=== PATIENT | male | born 1935 | race Caucasian/White ===

== ENCOUNTER → 2018-05-12 10:51 | Outpatient (CLI) | payer MEDICARE, MEDICAID, SELFPAY ==
--- NOTE | 2018-05-12 10:54 | DI.RAD.S_ITS ---
PROCEDURE: XR SHOULDER LT MIN 2V INDICATIONS: OSTEOARTHRITIS TECHNIQUE: 3 views of the shoulder were acquired. COMPARISON: None. FINDINGS: Bones: No fractures or dislocations. No suspicious bony lesions. Visualized ribs appear intact. Mild to moderate a.c. joint and glenohumeral joint osteoarthritis is seen. Soft tissues: No suspicious soft tissue calcifications. IMPRESSION: Shoulder joint osteoarthritis. No fracture or dislocation. Dictated by: Bon Fuentes M.D. on 05/12/2018 at 13:06 Approved by: Bon Fuentes M.D. on 05/12/2018 at 13:08
== END ==
PROVIDERS: Family Provider Family Medicine; PCP Family Medicine; Visit Provider Physical Medicine & Rehabilitation
DX: M19.012 Primary osteoarthritis, left shoulder (principal); M19.011 Primary osteoarthritis, right shoulder
CPT/HCPCS: 73030

== ENCOUNTER 2018-05-18 13:22 | Outpatient (CLI) | payer MEDICARE, MEDICAID, SELFPAY ==
[2018-05-18] VITALS (20 sets, daily range): BP systolic 94–148; BP diastolic 40–80; PULSE 43–110; RESP 16–20; TEMP 36.8; O2SAT 97–100
--- NOTE | 2018-05-18 13:25 | DI.RAD.S_ITS ---
PROCEDURE: PAIN L/S TRANSFORAMINAL INJECT INDICATIONS: Spinal stenosis with right lower extremity symptoms FINDINGS: Fluoroscopic spot filming was performed to verify placement of spinal needles at the lumbosacral spine L3-L4 right-sided level(s), as labeled on the films. Appropriate location(s) of the needle tip(s) was confirmed by injection of iodinated contrast. IMPRESSION: Successful right-sided L3-L4 needle tip localization for transforaminal epidural steroid injection. Dictated by: Francisco Connelly M.D. on 05/18/2018 at 15:03 Approved by: Francisco Connelly M.D. on 05/18/2018 at 15:04
[2018-05-18] MEDS: MIDAZOLAM 5 MG/5 ML VIAL IV (13:57)
[2018-05-18] MEDS: BUPIVACAINE 0.25% (PF) VIAL 2 ML INJ (14:01)
[2018-05-18] MEDS: IOPAMIDOL 15 ML VIAL 3 ML INJ (14:02)
[2018-05-18] MEDS: methylPREDNISolone acetate 80 MG/ML VIAL INJ (14:02)
--- NOTE | 2018-05-18 14:08 | P.PCN_ITS ---
Procedures Date/Time Date of procedure: 05/18/18 Time of procedure: 14:07 General Procedure description: PROVIDER: Minesh Martinez DO Operative Note PREOP DIAGNOSIS 1. FORAMINAL STENOSIS WITH LE SYMPTOMS, POST OP DIAGNOSIS 1. FORAMINAL STENOSIS WITH LE SYMPTOMS, PROCEDURES 1. FLUOROSCOPICALLY GUIDED CONTRAST CONTROLLED TRANSFORAMINAL EPIDURAL STEROID INJECTION - RIGHT L3/4 TFESI SURGEON: Minesh Martinez DO INDICATIONS Wilber is referred by Dr. Vo for treatment of Foraminal Stenosis with right LE Symptoms FINDINGS Foraminal Nerve Root Compression secondary to disc disease and facet hypertrophy DESCRIPTION OF PROCEDURE Following denial of allergy and review of potential side effects and complications, including, but not necessarily limited to, infection, allergic reaction, local tissue breakdown, stroke, temporary or permanent nerve injury, paralysis, and possible , the patient indicated that the patient understood and agreed to proceed. An informed consent document was signed by the patient, witnessed by a nurse, and placed in the patient's chart. Additionally, other treatment options including medications, modalities, and physical therapy were reviewed with the patient. After review of previous anaesthesic history and IV conscious sedation the patient was deemed safe to proceed with todays procedure with IV conscious sedation as ASA class II designation. Safety time-out was performed to confirm patient ID, procedure to be performed and site of procedure. IV sedation was accomplished with a combination of 5mg was administered by the RN after DO order , titrated to patient comfort during the course of the procedure while the patient remained responsive to all verbal commands In the prone position following sterile prep and drape of the lumbar region, the right L3/4 posterior neuroforamen was identified fluoroscopically. The skin was anesthetized via a 25-gauge 1.5-inch needle with 1% lidocaine solution. At this point, a 25-gauge 3.5-inch spinal needle was atraumatically introduced and advanced under fluoroscopic guidance through the posterior right L3/4 neuroforamen to approximately the anterior aspect of the canal. Depth was confirmed on lateral view. Following negative aspiration, injection of approximately 1.5 cc of Isovue 200 under live fluoroscopy in the AP view confirmed excellent flow along the nerve root, into the epidural space without vascular or intrathecal uptake observed Radiological data, including multiple fluoroscopic views of the lumbosacral spine, reveal a spinal needle at the right L3/4 posterior neuroforamen. Subsequent views show flow of contrast material flowing superiorly and inferiorly along the nerve root confirming epidural flow. Subsequently, a test dose of 1.5 cc of 1% lidocaine solution was administered and patient was observed for two minutes for signs or symptoms of complications , including abdominal pain, shortness of breath, bilateral upper or lower extremity weakness, nausea and vomiting, prior to steroid injection. At this point, a total of 3 cc or 20 mg of dexamethasone and 80mg Depo medrol was injected without incident. The patient tolerated the procedure well without signs or symptoms of complications prior to transfer to the recovery area continued monitoring without incident. The patient was then transferred to the recovery area where they were observed for an appropriate time after the injection. The patient reported a VAS score of 7 prior to the procedure and a post-procedure VAS of 0. Total Fluoroscopy Time: 24.2 seconds Total Conscious Sedation Time: 24min POST OP INSTRUCTIONS The patient was provided a Pain Log to continue to record their response to the target-specific procedure prior to follow-up visit with their referring physician. Additionally, specific post-injection care instructions and a contact number to our office were provided if concerns arise regarding possible complications associated with the procedure are suspected. Minesh Martinez DO
[2018-05-18] MEDS: DEXAMETHASONE 10 MG/ML VIAL 20 MG INJ (14:19)
--- NOTE | 2018-05-19 13:43 | PC.NURSE ---
Called patient for follow up post procedure but pt did not answer so I left a message.
== END 2018-05-18 15:29 ==
PROVIDERS: Family Provider Family Medicine; PCP Family Medicine; Visit Provider Physical Medicine & Rehabilitation
DX: M48.062 Spinal stenosis, lumbar region with neurogenic claudication (principal); M51.16 Intervertebral disc disorders with radiculopathy, lumbar region
CPT/HCPCS: 64483; 99152; J1040; J1100; J2250

== ENCOUNTER → 2018-05-24 16:58 | Outpatient (CLI) | payer MEDICARE, MEDICAID, SELFPAY ==
--- NOTE | 2018-05-24 17:02 | DI.RAD.S_ITS ---
PROCEDURE: XR CHEST 2V INDICATIONS: unexplained weight loss TECHNIQUE: 2 views of the chest were acquired. COMPARISON: 06/18/2015. FINDINGS: Surgical changes and devices: None. Lungs and pleura: No pleural effusions or pneumothorax. Lungs are clear. Mediastinum: Mediastinal contours are normal. Heart size is normal. Bones and chest wall: No suspicious bony abnormalities. Diffuse thoracic spine osteophytes. Soft tissues appear unremarkable. IMPRESSION: No radiographic evidence of acute cardiopulmonary pathology. Dictated by: Mike Yepez M.D. on 05/25/2018 at 9:39 Approved by: Mike Yepez M.D. on 05/25/2018 at 9:40
[2018-05-24 17:29] LABS: Add Manual Diff / Slide Review NO; Basophils Percent Auto 0.6 % (0-2); Hemoglobin 12.1 g/dL (13.5-17.5); Lymphocytes Percent Auto 30.4 % (25-40); Mean Corpuscular HGB Conc 32.7 % (30-36); Mean Corpuscular Hemoglobin 30.2 PG (26-34); Mean Corpuscular Volume 92.4 fL (80-100); Monocytes Percent Auto 10.1 % (3-14); Neutrophils Absolute Auto 4300 /uL (3000-5900); Neutrophils Percent Auto 57.9 % (50-75); Platelet Count 208 X10^3/uL (150-400); Red Cell Distribution Width 15.5 % (11.6-14.8); White Blood Cell Count 7.4 X10^3/uL (4.5-11.0)
[2018-05-24 18:01] LABS: Alanine Aminotransferase 24 IU/L (21-72); Albumin 3.9 g/dL (3.5-5.0); Albumin Globulin Ratio 1.4 (1.0-2.8); Alkaline Phosphatase 97 U/L (38-126); Aspartate Aminotransferase 26 IU/L (17-59); BUN Creatinine Ratio 15.5 (6-22); Bilirubin Total 0.5 mg/dL (0.2-1.3); Blood Urea Nitrogen 17 mg/dL (9-20); Calcium 9.3 mg/dL (8.4-10.2); Carbon Dioxide 30 mmol/L (22-32); Chloride 103 mmol/L (98-107); Estimated Glomerular Filt Rate > 60.0 mL/min (>60); Globulin 2.7 g/dL (1.7-4.1); Glucose 90 mg/dL (80-110); HEMOLYSIS < 15 (0-50); Potassium 4.1 mmol/L (3.4-5.1); Sodium 143 mmol/L (137-145); Total Protein 6.6 g/dL (6.3-8.2)
[2018-05-24 18:18] LABS: Free T4, Direct Thyroxine 1.46 ng/dL (0.78-2.19)
[2018-05-24 18:32] LABS: Thyroid Stimulating Hormone 0.46 uIU/mL (0.47-4.68)
== END ==
PROVIDERS: Family Provider Family Medicine; PCP Family Medicine; Visit Provider Family Medicine
DX: R63.4 Abnormal weight loss (principal); I10 Essential (primary) hypertension; Z00.00 Encounter for general adult medical examination without abnormal findings
CPT/HCPCS: 36415; 71046; 80053; 84153; 84439; 84443; 85025

== ENCOUNTER → 2018-06-01 13:53 | Outpatient (CLI) | payer MEDICARE, MEDICAID, SELFPAY ==
--- NOTE | 2018-06-01 14:05 | DI.CT.S_ITS ---
PROCEDURE: CT ABDOMEN PELVIS W CON INDICATIONS: UNEXPLAINED WEIGHT LOSS TECHNIQUE: After the administration of oral and intravenous contrast, 5 mm thick sections acquired from the diaphragms to the symphysis. 5 mm thick coronal and sagittal reformats were performed. For radiation dose reduction, the following was used: automated exposure control, adjustment of mA and/or kV according to patient size. COMPARISON: None. FINDINGS: Image quality: Images of the pelvis are partially obscured by hip arthroplasty artifact. ABDOMEN: Lung bases: 5 mm diameter nodule within the left inspector penetrant lateral lung base is present. Lung bases are otherwise clear. Heart size is normal. Solid organs: Liver is normal in size and enhancement. Gallbladder is within normal limits. Biliary system is non-dilated. Pancreas enhances normally. Spleen is normal in size and enhancement. No adrenal nodules. Kidneys are normal in size and enhancement, without hydronephrosis. Peritoneum and bowel: A moderate hiatal hernia is present. Stomach, small bowel, and colon loops are normal in caliber and wall thickness. No free fluid or air. Normal appendix. Nodes and vessels: No retroperitoneal or mesenteric adenopathy. Aorta and inferior vena cava are normal in caliber. Miscellaneous: No ventral hernias. PELVIS: Genitourinary: Bladder wall thickness is normal. Miscellaneous: No inguinal hernias or adenopathy. Bones: No suspicious bony lesions. Bilateral hip arthroplasty has been performed. No vertebral body compression fractures. IMPRESSION: 1. Left lung base nodule; followup is recommended as below. 2. Normal appendix. 3. Moderate hiatal hernia. Fleischner Society criteria for SOLID lung nodule followup. Nodule size (mm)Low-risk patientHigh-risk patient<6 (single or multiple)No routine followup.Optional CT at 12 months. 6-8 (single or multiple)CT at 6-12 months, then optional CT at 18-24 mo.CT at 6-12 months, then CT at 18-24 months. >8 (single)CT, PET-CT, or biopsy at 3 months. Same as for low-risk pts. >8 (multiple)CT at 3-6 months, then optional CT at 18-24 mo.CT at 3-6 months, then CT at 18-24 months. Fleischner Society criteria for SUB-SOLID lung nodule followup. Solitary pure ground-glass nodules<6 mm (ground glass or part solid)No followup needed. 6 mm or larger (ground glass)CT at 6-12 months to confirm persistence, then CT every 2 years until 5 years.6 mm or larger (part solid)CT at 3-6 months to confirm persistence, then annual CT until 5 years if unchanged and solid component remains <6 mm. Multiple sub-solid nodules<6 mmCT at 3-6 months, then CT consider at 2 & 4 years for high risk patients. [address] at 3-6 months. Subsequent management based on most suspicious lesions. Recommendations do not apply to lung cancer screening, patients with immunosuppression, or patients with known primary cancer. Dictated by: Shereen Sarkar M.D. on 06/01/2018 at 14:49 Approved by: Shereen Sarkar M.D. on 06/01/2018 at 14:52
== END ==
PROVIDERS: Family Provider Family Medicine; PCP Family Medicine; Visit Provider Family Medicine
DX: R63.4 Abnormal weight loss (principal); R91.1 Solitary pulmonary nodule; K44.9 Diaphragmatic hernia without obstruction or gangrene
CPT/HCPCS: 74177; Q9967

== ENCOUNTER → 2019-01-31 14:12 | Outpatient (CLI) | payer MEDICARE, MEDICAID, SELFPAY ==
--- NOTE | 2019-01-31 14:14 | DI.MRI.S_ITS ---
PROCEDURE: MR LUMBAR SPINE WO CON INDICATIONS: Low back pain TECHNIQUE: Noncontrast sagittal T1 spin echo and T2 fast echo, sagittal STIR, axial T1 and T2 fast spin echo through the lumbar spine. In cases with scoliosis, additional coronal T2 fast spin echo may be performed. COMPARISON: [facility], MR, L-SPINE WITHOUT CONTRAST, 05/01/2016, 8:00. [facility], CT, CT ABDOMEN PELVIS W CON, 06/01/2018, 14:19. [facility], MR, L-SPINE WITHOUT CONTRAST, 01/22/2014, 13:33. [facility], MR, L-SPINE WITHOUT CONTRAST, 11/30/2011, 17:56. FINDINGS: Image quality: Excellent. Alignment and Curvature: There is mild S. shaped scoliotic curvature seen. Bone Marrow: Marrow is of normal overall signal. No acute vertebral body compression fractures. Spinal Cord: Conus medullaris terminates at the T12-L1 level. Visualized cord demonstrates normal signal and size. Paraspinous Soft Tissues: No paravertebral masses. T12-L1: The disc height is well-preserved. Loss of disc signal is seen at this level. Mild generalized disc bulge is seen. There is mild left-sided and moderate right-sided neural foraminal narrowing seen. No significant central canal narrowing is seen. L1-L2: Moderate to severe loss of disc height is seen. Loss of disc signal is seen. Moderate disc bulge is seen, which is eccentric to the right side. Moderate facet joint hypertrophy is seen. There is moderate bilateral neural foraminal narrowing seen, right worse than left. Moderate central canal narrowing is seen. The degree of central canal narrowing appears improved compared to 2016. L2-L3: Moderate to severe loss of disc height and disc signal are seen. Moderate to prominent disc bulge is seen. Moderate facet hypertrophy is seen, with associated moderate hypertrophy of the ligamentum flavum. Moderate bilateral neural foraminal narrowing is seen. Moderate to severe central canal narrowing is seen, as on series 5 image 19. Stable from the prior study. L3-L4: At least moderate loss of disc height and disc signal are seen. Moderate disc bulge is seen, which is eccentric to the right. Prominent facet hypertrophy is seen, with associated prominent hypertrophy of the ligamentum flavum. There is at least moderate bilateral neural foraminal narrowing seen, left worse than right. Severe central canal narrowing is seen, as on series 5 image 23. No significant change from the prior. L4-L5: Moderate to severe loss of disc height and disc signal are seen. Moderate disc bulge is seen, which is eccentric to the left. There is prominent facet hypertrophy seen, with associated prominent hypertrophy of the ligamentum flavum. There is moderate right-sided and moderate to severe left-sided neural foraminal narrowing seen. Severe central canal narrowing is seen, as on the spine image 28. Stable from the prior study. L5-S1: Moderate to severe loss of disc height and disc signal are seen. Moderate disc bulge is seen, which is eccentric to the left. Moderate to prominent facet hypertrophy is seen. Moderate bilateral neural foraminal narrowing is seen. Moderate central canal narrowing is seen. Stable from the prior study. IMPRESSION: Multiple levels of relatively lower lumbar spine degenerative change are seen, which are similar to 2016. However, the degree of central canal narrowing at L1-L2 appears improved since the prior MRI. Dictated by: Medardo Rojas M.D. on 01/31/2019 at 14:11 Approved by: Medardo Rojas M.D. on 01/31/2019 at 14:18
== END ==
PROVIDERS: Family Provider Family Medicine; PCP Family Medicine; Visit Provider Physical Medicine & Rehabilitation
DX: M54.5 Low back pain (principal); M47.816 Spondylosis without myelopathy or radiculopathy, lumbar region; M47.817 Spondylosis without myelopathy or radiculopathy, lumbosacral region; M48.062 Spinal stenosis, lumbar region with neurogenic claudication; M48.07 Spinal stenosis, lumbosacral region
CPT/HCPCS: 72148

== ENCOUNTER 2019-02-21 14:03 | Outpatient (CLI) | payer MEDICARE, MEDICAID, SELFPAY ==
[2019-02-21] VITALS (8 sets, daily range): BP systolic 99–146; BP diastolic 53–79; PULSE 52–71; RESP 16–18; TEMP 36.1; O2SAT 97–99
--- NOTE | 2019-02-21 14:07 | DI.RAD.S_ITS ---
PROCEDURE: PAIN L/S FACET INJ/BLK 1ST BRANT COMPARISON: None. INDICATIONS: SPONDYLOSIS FINDINGS: Bilateral needle tip localization has been performed targeted to the L4-5 and L5-S1 facet joints for facet joint steroid injection. IMPRESSION: Successful needle tip localization is bilaterally for facet joint steroid injection as discussed. Dictated by: Francisco Connelly M.D. on 02/21/2019 at 16:31 Approved by: Francisco Connelly M.D. on 02/21/2019 at 16:32
[2019-02-21] MEDS: MIDAZOLAM 5 MG/5 ML VIAL IV (14:30)
[2019-02-21] MEDS: fentaNYL 100 MCG/2 ML INJ 50 MCG IV (14:30)
[2019-02-21] MEDS: IOPAMIDOL 15 ML VIAL 3 ML INJ (14:33)
[2019-02-21] MEDS: LIDOCAINE 1% 20 ML INJ 10 ML INJ (14:33)
[2019-02-21] MEDS: BUPIVACAINE 0.5% (PF) VIAL 2 ML INJ (14:33)
[2019-02-21] MEDS: BETAMETHASONE 30 MG/5 ML MDV 12 MG INJ (14:33)
--- NOTE | 2019-02-21 14:39 | PC.NURSE ---
ASSISTING PT OFF TABLE AND TRANSPORTING TO POST PROC AREA IN STABLE CONDITION.
--- NOTE | 2019-02-21 14:43 | P.PCN_ITS ---
Procedures Date/Time Date of procedure: 02/21/19 Time of procedure: 14:42 General Procedure description: PREOP DIAGNOSIS 1. FACET ARTHROPATHY 2. AXIAL LBP 3. MULTILEVEL DDD POST OP DIAGNOSIS 1. FACET ARTHROPATHY 2. AXIAL LBP 3. MULTILEVEL DDD PROCEDURES 1. FLUORSCOPICALLY GUIDED CONTRAST CONTROLLED FACET JOINT INJECTIONS BILATERAL L4/5, L5/S1 PHYSICIAN: Minesh Martinez, INDICATIONS Wilber is referred by Dr. Vo for treatment of Axial LBP FINDINGS Multilevel Facet Arthropathy with Clinically significant axial LBP DESCRIPTION OF PROCEDURE Fluoroscopically guided, contrast-controlled bilateral L4/5, L5/S1 facet joint injections. Following denial of allergy and review of potential side effects and complications, including, but not necessarily limited to, infection, allergic reaction, local tissue breakdown, stroke, temporary or permanent nerve injury, paralysis, and possible , the patient indicated that the patient understood and agreed to proceed. An informed consent document was signed by the patient, witnessed by a nurse, and placed in the patient's chart. Additionally, other treatment options including medications, modalities, and physical therapy were reviewed with the patient. After review of previous anaesthesic history and IV conscious sedation the patient was deemed safe to proceed with todays procedure with IV conscious sedation as ASA class II designation. Safety time-out was performed to confirm patient ID, procedure to be performed and site of procedure. IV sedation was accomplished with a combination of 2mg of Versed and 50mcg of Fentanyl was administered by the RN after DO order, titrated to patient comfort during the course of the procedure while the patient remained responsive to all verbal commands In the prone position, following sterile prep and drape of the lumbar region, the posterior aspect of the L4/5, L5/S1 facet joints were identified fluoroscopically. The skin was anesthetized via a 25-gauge 1.5-inch needle with 1% lidocaine solution into the corresponding facet joints. At this point, a 22- gauge 3.5-inch spinal needle was atraumatically introduced and advanced under fluoroscopic guidance into the corresponding facet joints. Following negative aspiration, injections of approximately 0.2-cc of Isovue 200 confirmed interarticular placement without vascular uptake. The identical procedure was then performed at the L4/5, L5/S1 facet joints on the left. Radiological data, including multiple fluoroscopic views of the lumbosacral spine, reveal a spinal needle at the L4/5, L5/S1 facet joints bilaterally. Subsequent views show flow of contrast material both superiorly and inferiorly within the joint space without vascular or intrathecal uptake. At this point, a total of 0.5cc including a mixture of 0.25cc Marcaine and 0.25cc betamethasone was injected without complication into each of the corresponding facet joints. The patient tolerated the procedure well without signs or symptoms of complications prior to transfer to the recovery area continued monitoring without incident. The patient was then transferred to the recovery area where they were observed for an appropriate period of time after the injection. The patient reported a VAS score of 7 prior to the procedure and a post- procedure VAS of 0. Total Fluoroscopy Time: 20.3 seconds Total Conscious Sedation Time: 24min POST OP INSTRUCTIONS The patient was provided a Pain Log to continue to record their response to the target-specific procedure prior to follow-up visit with their referring physician. Additionally, specific post-injection care instructions and a contact number to our office were provided if concerns arise regarding possible complications associated with the procedure are suspected. Minesh Martinez DO Complications: none
--- NOTE | 2019-02-21 15:20 | PC.NURSE ---
pt returned from procedure awake and alert and able to move from W/C to chair with standby assist. Resumed monitoring from Maria Fernanda NASCIMENTO.
== END 2019-02-21 15:29 ==
LOC: RAD 14:05
PROVIDERS: PCP Family Medicine; Referring Provider Physical Medicine & Rehabilitation; Visit Provider Physical Medicine & Rehabilitation
DX: M47.817 Spondylosis without myelopathy or radiculopathy, lumbosacral region (principal); M47.816 Spondylosis without myelopathy or radiculopathy, lumbar region; M54.5 Low back pain; M51.36 Other intervertebral disc degeneration, lumbar region; M51.37 Other intervertebral disc degeneration, lumbosacral region
CPT/HCPCS: 64493; 64494; 99152; J0702; J2250; J3010

== ENCOUNTER 2021-01-08 12:53 | Emergency (ER) | payer MEDICARE, MEDICAID, SELFPAY ==
[2021-01-08 13:02] VITALS: BP 150/70; PULSE 60; RESP 18; O2SAT 96
--- NOTE | 2021-01-08 13:05 | DI.RAD.S_ITS ---
PROCEDURE: XR KNEE LT 3V INDICATIONS: pain unknown. TECHNIQUE: 3 views of the knee were acquired. COMPARISON: [facility], , KNEE 3V LEFT, 01/18/2017, 12:25. FINDINGS: Bones: No fractures or dislocations. Unchanged degenerative arthritis. No suspicious bony lesions. Soft tissues: No joint effusion. No suspicious soft tissue calcifications. Extensive popliteal artery calcifications. IMPRESSION: 1. Stable degenerative arthritis. 2. Peripheral vascular disease. 3. No evidence acute bony abnormality of the left knee. If clinical suspicion and/or symptoms persist, further assessment with repeat plain films, or advanced imaging (e.g., CT, MRI, or bone scan) may be helpful for further assessment. Dictated by: Lit Cardenas M.D. on 01/08/2021 at 14:06 Approved by: Lit Cardenas M.D. on 01/08/2021 at 14:08
--- NOTE | 2021-01-08 15:40 | PC.NURSE ---
pulses palpable to left popiteal and ankle, pt describes it being a shooting pain, in the inner thigh.
--- NOTE | 2021-01-08 16:16 | ED_ITS ---
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 Patient has expressive aphasia secondary to stroke. Patient does not recall any significant trauma or injury recently. He states he does exercise regularly. Patient does indicate that he has had issues with his back and that sometimes this pain seems to be radiating down his leg towards his knee. His back pain is not new. He is denying any new numbness, weakness or loss of sensation. Patient does leave his knee is slightly more swollen than the other. He indicates the medial side of the knee just above her adjacent to the tibia is his main area of pain. Patient states that when he stands or moves it seems to cause sudden jolt of pain. Patient indicates the does sometimes radiate from his back down his leg but not always. He has not felt or appreciate any warmth or redness. He does appreciate some mild swelling in his lower extremity at the knee. Related Data Previous Rx's Medication Instructions Recorded Disabled Parking Permit ea #1 05/05/17 alprazolam 0.5 mg OR HSP PRN #30 tab 12/10/17 levothyroxine 100 mcg tablet 100 mcg PO QAM #90 tab 06/13/18 oxycodone 10 mg tablet 10 mg PO QIDP PRN #120 tab 08/01/18 allopurinol 300 mg tablet 300 mg PO QDAY #30 tab 10/20/18 clopidogrel 75 mg tablet 75 mg PO QDAY #90 tab 10/20/18 atorvastatin 40 mg tablet 40 mg PO HS #90 tab 11/11/18 gabapentin 300 mg capsule 600 mg PO 5XD PRN #90 cap 03/03/19 meloxicam [Mobic] 7.5 mg PO BID PRN #10 tab 01/08/21 Allergies Allergy/AdvReac Type Severity Reaction Status Date / Time morphine AdvReac Mild NON Verified 02/21/19 14:29 EFFECTIVE Review of Systems Review of Systems ROS Unobtainable: All systems reviewed & are unremarkable except as noted in HPI and below Patient History Medical History Anemia (Unknown) Anxiety (Unknown) Aphasia (11/2014) Blind left eye (2016) Chronic back pain (Unknown) CKD (chronic kidney disease) (Unknown) Generalized headaches (Unknown) Gouty arthritis (Unknown) Hearing loss Hx of steroid therapy (~2015) Hyperlipemia (Unknown) Hypertension (Unknown) Hypothyroidism (Unknown) Stroke (11/2014) Uncomplicated opioid dependence Surgical History Hx of total hip arthroplasty (Unknown) Family History Father No problems noted. Mother No problems noted. Social History Smoking Status: Former smoker alcohol intake: never substance use type: does not use Smoking Status: Former smoker Substance Use Type: does not use Exam Narrative Exam Narrative: GENERAL: Alert and oriented x three, well-nourished male in mild distress. HEENT: Head normocephalic, atraumatic, EOMI, pupils reactive, face symmetric, moist mucous membranes NECK: Supple, full range of motion CARDIOVASCULAR: Regular rate and rhythm without murmurs, rubs or gallops. RESPIRATORY: Breath sounds equal bilaterally, no wheezes rales or rhonchi. ABDOMEN: Soft, nontender. Normoactive bowel sounds all 4 quadrants. No guarding or rebound, rigidity, no mass : No CVA tenderness BACK: No cervical, thoracic or lumbar vertebral point tenderness. Patient has normal range of motion. Dorsalis pedis and tibialis pulses are 2+. Sensation is intact in the lower extremities. EXTREMITIES: Normal range of motion, no clubbing, possible mild edema of medial knee but difficulty to appreciate. No posterior knee pain, no calf pain. Patient has some tenderness of the medial knee, no significant bony tenderness of the foot, ankle, lower extremity or patella, patient is nontender in the femur. He does not have any obvious deformity joint laxity testing is negative with negative compression test no warmth or erythema is appreciated.. Neurovascularly intact NEUROLOGICAL: Cranial nerves II through XII grossly intact. Moving all extremities SKIN: Warm, dry, no petechiae, no rashes or lesions. Initial Vital Signs Initial Vital Signs: Vital Signs Pulse Rate 60 01/08/21 13:02 Respiratory Rate 18 01/08/21 13:02 Blood Pressure 150/70 H 01/08/21 13:02 Pulse Oximetry 96 01/08/21 13:02 Course Orders Ordered: ED Orders 01/08/21 13:05 XR knee LT 3V Stat Vital Signs Vital signs: Vital Signs - 8 hr 01/08/21 13:02 01/08/21 17:08 Pulse Rate 60 50 L Respiratory Rate 18 18 Blood Pressure 150/70 H 171/84 H Pulse Oximetry 96 98 MDM - Extremity Injury (Lower) Imaging Data Extremity x-ray #1: Radiologist's Impression: [address] [id number] ReportSigned Patient: Wilber Marie WMR#: [id number]: 7Acct:[id number]/Sex: 85 / MDate of Service: 01/08/21Loc: EDAccession Number: [id number] Procedure: XR knee LT 3V Ordering Provider: Criss Padilla D.O. PROCEDURE: XR KNEE LT 3V INDICATIONS: pain unknown. TECHNIQUE: 3 views of the knee were acquired. COMPARISON: [facility], , KNEE 3V LEFT, 01/18/2017, 12:25. FINDINGS: Bones: No fractures or dislocations. Unchanged degenerative arthritis. No suspicious bony lesions. Soft tissues: No joint effusion. No suspicious soft tissue calcifications. Extensive popliteal artery calcifications. IMPRESSION: 1. Stable degenerative arthritis. 2. Peripheral vascular disease. 3. No evidence acute bony abnormality of the left knee. If clinical suspicion and/or symptoms persist, further assessment with repeat plain films, or advanced imaging (e.g., CT, MRI, or bone scan) may be helpful for further assessment. Dictated by: Lit Cardenas M.D. on 01/08/2021 at 14:06 Approved by: Lit Cardenas M.D. on 01/08/2021 at 14:08 [facility] Narrative Medical decision making narrative: This is an 85-year-old male with complaint of left pain in his knee with some swelling he describes pain mostly on the medial side. He does not have any acute traumatic injury. His imaging does not show any acute changes. Arthritis. He also has some signs of peripheral vascular disease. He also has a history of a back pain and describes pain radiating down towards the knee at time. On physical exam he does have some pain with palpation medially. 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 Discussed a short course of decreasing his activity level. Adding an NSAID to his regular medications for pain and inflammation and follow up with his physician tomorrow. Discharge Plan Departure Patient Disposition: Home Clinical Impression: Knee pain, left Instructions: DI for Knee Pain Activity Restrictions/Additional Instructions: Follow up with your physician at your appointment tomorrow. You may continue your home medications as prescribed. You may take Tylenol up to 1000mg every 8 hours as needed for pain. You may take mobic one tablet every 12 hours as needed with pain. You may take this with your other your other pain medication. Your prescription was sent to [facility]. Please return for fevers greater 100.4 F, your knees becomes red, hot or increasing swelling, new weakness, loss of sensation, rapidly worsening pain, new chest pain, shortness of breath, swelling of your entire leg or other new or concerning symptoms. Prescriptions: New meloxicam [Mobic] 7.5 mg tablet 7.5 mg PO BID PRN (Reason: pain) Qty: 10 RF: 0 No Action Disabled Parking Permit Qty: 1 RF: 0 alprazolam 0.5 MG tablet 0.5 mg OR HSP PRNQty: 30 RF: 0 levothyroxine 100 mcg tablet 100 mcg PO QAM Qty: 90 RF: 3 oxycodone 10 mg tablet 10 mg PO QIDP PRN (Reason: pain) Qty: 120 RF: 0 allopurinol 300 mg tablet 300 mg PO QDAY Qty: 30 RF: 5 clopidogrel [Plavix] 75 mg tablet 75 mg PO QDAY Qty: 90 RF: 1 atorvastatin 40 mg tablet 40 mg PO HS Qty: 90 RF: 1 gabapentin [Neurontin] 300 mg capsule 600 mg PO 5XD PRN (Reason: pain) Qty: 90 RF: 0 Referrals: Juan Vo MD [Primary Care Provider] -
[2021-01-08 17:08] VITALS: BP 171/84; PULSE 50; RESP 18; O2SAT 98
== END 2021-01-08 19:14 | disposition home or self-care (01) ==
PROVIDERS: Emergency Provider Emergency Medicine; PCP Family Medicine
DX: M25.562 Pain in left knee (principal)
CPT/HCPCS: 73562; 99283

== ENCOUNTER 2021-01-13 16:00 | Emergency (ER) | payer MEDICARE, MEDICAID, SELFPAY ==
--- NOTE | 2021-01-13 16:11 | ED.LOWEXIN ---
HPI - Extremity Injury (Lower) General Chief Complaint: Extremity Problem,Nontraumatic Stated Complaint: LEFT KNEE SWELLING Time Seen by Provider: 01/13/21 16:10 History of Present Illness HPI Narrative: 85-year-old gentleman with a history of a stroke with expressive aphasia, hypothyroidism chronic back pain and arthritis. He was seen on the in the emergency department complaining of left knee pain. X-rays at that time suggested arthritis he did not have any specific trauma at that time he saw his primary care physician the following day and and MRI referral was initiated. Apparently that referral has come through so he comes to the emergency room today to have the MRI completed. The knee is still sore, there is no warmth or redness and no additional trauma or changes since the previous visit. He complains that it hurts and he would like it fixed immediately. Related Data Previous Rx's Medication Instructions Recorded Disabled Parking Permit ea #1 05/05/17 alprazolam 0.5 mg OR HSP PRN #30 tab 12/10/17 levothyroxine 100 mcg tablet 100 mcg PO QAM #90 tab 06/13/18 oxycodone 10 mg tablet 10 mg PO QIDP PRN #120 tab 08/01/18 allopurinol 300 mg tablet 300 mg PO QDAY #30 tab 10/20/18 clopidogrel 75 mg tablet 75 mg PO QDAY #90 tab 10/20/18 atorvastatin 40 mg tablet 40 mg PO HS #90 tab 11/11/18 gabapentin 300 mg capsule 600 mg PO 5XD PRN #90 cap 03/03/19 meloxicam [Mobic] 7.5 mg PO BID PRN #10 tab 01/08/21 meloxicam 7.5 mg PO BID #60 tab 01/13/21 Allergies Allergy/AdvReac Type Severity Reaction Status Date / Time morphine AdvReac Mild NON Verified 02/21/19 14:29 EFFECTIVE Review of Systems Review of Systems Narrative: Pertinent positive and negative findings as per HPI Remainder of review of systems is otherwise unremarkable for Constitutional: Fevers, chills, weakness CV: Chest pain, palpitations, Respiratory: Cough, wheeze, dyspnea Patient History Medical History (Updated 01/13/21 @ 17:13 by Mady Beltre MD) Anemia (Unknown) Anxiety (Unknown) Aphasia (11/2014) Blind left eye (2015) Chronic back pain (Unknown) CKD (chronic kidney disease) (Unknown) Generalized headaches (Unknown) Gouty arthritis (Unknown) Hearing loss Hx of steroid therapy (~2015) Hyperlipemia (Unknown) Hypertension (Unknown) Hypothyroidism (Unknown) Stroke (11/2014) Uncomplicated opioid dependence Surgical History Hx of total hip arthroplasty (Unknown) Family History Father No problems noted. Mother No problems noted. Social History Smoking Status: Former smoker alcohol intake: never substance use type: does not use Smoking Status: Former smoker Substance Use Type: does not use Exam Narrative Exam Narrative: General: Alert appropriate in no acute distress Respiratory: Able to speak in full sentences, no obvious respiratory distress Skin: No obvious rashes, warm and dry Neurologic: Grossly intact no obvious asymmetries or abnormalities Psych: appropriate insight and affect, cooperative Extremity: Left knee with effusion and tenderness with flexion greater than 45? or full extension. There is no warmth or redness. He is tender enough that full ligamentous exam is challenging. He has no significant lower extremity edema Initial Vital Signs Initial Vital Signs: Vital Signs Temperature 98.6 F 01/13/21 16:16 Pulse Rate 71 01/13/21 16:16 Respiratory Rate 20 01/13/21 16:16 Blood Pressure 165/70 H 01/13/21 16:16 Pulse Oximetry 98 01/13/21 16:16 Course Orders Ordered: Discontinued Medications Ketorolac Tromethamine (Ketorolac 60 Mg/2 Ml Vial) 30 mg IM NOW ONE Stop: 01/13/21 16:47 Last Admin: 01/13/21 17:15 Dose: 30 mg Documented by: Vital Signs Vital signs: Vital Signs - 8 hr 01/13/21 16:16 Temperature 98.6 F Pulse Rate 71 Respiratory Rate 20 Blood Pressure 165/70 H Pulse Oximetry 98 MDM - Extremity Injury (Lower) Medical Records Attestation: I reviewed the patient's medical records. Lab Data Attestation: I reviewed the patient's lab results. MDM Narrative Medical decision making narrative: Patient with increasing left knee pain and mild diffusion in the absence of trauma the presence of chronic back pain with known knee arthritis with increasing effusion and pain. He currently has meloxicam as well as oxycodone but is anxious to get the problem completely fixed. Explained that we are unable to do an MRI for with chronic issues He was given a dose of IM Toradol to help with pain today. He does have both meloxicam and oxycodone available to him home for pain control. Apparently his was expecting that he be put ?on a drips to fix his pain?. We explained her that that was not going to be happening today. We did try to schedule an MRI for them however we need the actual referral number to do that. When talking to his she apparently does not have that information and the story becomes a bit more unclear. At this point she needs to contact Dr. Vo's office to find out if the referral has fully been approved and if so what the referral number is and then be instructed on how to contact MRI to schedule appointment. At this point, I think the most likely explanation for this gentleman's knee pain is chronic arthritis and I am not sure that the MRI is actually going to add a significant bit of information to the overall clinical picture. There is no evidence of septic arthritis, gout, cellulitis or acute bony injury. He does have a walker as well as a cane available to him at home and is safe for home discharge at this time Discharge Plan Departure Patient Disposition: Home Clinical Impression: Knee pain, left Qualifiers: Chronicity: acute Qualified Code(s): M25.562 - Pain in left knee Instructions: DI for Knee Pain Activity Restrictions/Additional Instructions: Thank you for coming in today. I am sorry that your knee is bothering you so much. At this point there is really no suggestion of infection. You do have pain medication at home and you also have a walker and a cane that you can be using to help take some of the weight off of the affected knee. You need to contact Dr. Vo's office to confirm that the referral for the MRI of your left knee has been approved, get the referral number if it has and asked them to give you the phone number to contact MRI to schedule the study. In the emergency room today you were given a shot of Toradol to help with the pain over the next few hours. I hope you feel better soon Prescriptions: New meloxicam 7.5 mg tablet 7.5 mg PO BID Qty: 60 RF: 0 No Action Disabled Parking Permit Qty: 1 RF: 0 alprazolam 0.5 MG tablet 0.5 mg OR HSP PRNQty: 30 RF: 0 levothyroxine 100 mcg tablet 100 mcg PO QAM Qty: 90 RF: 3 oxycodone 10 mg tablet 10 mg PO QIDP PRN (Reason: pain) Qty: 120 RF: 0 allopurinol 300 mg tablet 300 mg PO QDAY Qty: 30 RF: 5 clopidogrel [Plavix] 75 mg tablet 75 mg PO QDAY Qty: 90 RF: 1 atorvastatin 40 mg tablet 40 mg PO HS Qty: 90 RF: 1 gabapentin [Neurontin] 300 mg capsule 600 mg PO 5XD PRN (Reason: pain) Qty: 90 RF: 0 meloxicam [Mobic] 7.5 mg tablet 7.5 mg PO BID PRN (Reason: pain) Qty: 10 RF: 0 Referrals: Juan Vo MD [Primary Care Provider] -
[2021-01-13 16:16] VITALS: BP 165/70; PULSE 71; RESP 20; TEMP 37; O2SAT 98; BMI 29.0
[2021-01-13] MEDS: KETOROLAC 60 MG/2 ML VIAL 30 MG IM (17:15)
[2021-01-13 18:02] VITALS: BP 160/70; PULSE 89; RESP 18; O2SAT 99
== END 2021-01-13 18:02 | disposition home or self-care (01) ==
PROVIDERS: Emergency Provider Emergency Medicine; PCP Family Medicine
DX: M25.562 Pain in left knee (principal)
CPT/HCPCS: 96372; 99283; J1885

== ENCOUNTER → 2021-01-20 12:19 | Outpatient (CLI) | payer MEDICARE, MEDICAID, SELFPAY ==
--- NOTE | 2021-01-20 | DI.MRI.S_ITS ---
PROCEDURE: MR KNEE LT WO CON INDICATIONS: PAIN IN LEFT KNEE TECHNIQUE: Noncontrast sagittal PD fast spin echo and T2 fast spin echo with fat saturation, sagittal 3-D FLASH with fat saturation; coronal T1 spin echo and PD fast spin echo with fat saturation, and axial PD fast spin echo with fat saturation through the knee. COMPARISON: [facility], CR, XR KNEE LT 3V, 01/08/2021, 13:08. FINDINGS: Image quality: Excellent. Menisci: Mild intrasubstance signal is seen in the body and posterior horn of the medial meniscus without extension to articular surface, compatible with intrasubstance degeneration. There is mild intrasubstance degeneration in the body of the lateral meniscus without a discrete tear. There is no meniscal extrusion. Cruciate ligaments: The anterior and posterior cruciate ligaments appear intact. Medial structures: The medial collateral ligament appears intact. The semimembranosus tendon insertions and meniscocapsular junction appear intact. Visualized portions of the pes anserinus tendons appear normal. No abnormal bursal fluid. Lateral structures: The lateral collateral ligament, long and short heads of the biceps femoris tendon appear intact. The popliteus tendon appears intact. No signs of posterolateral corner injury. Iliotibial band appears normal. Anterior structures: A mildly shallow trochlear groove is seen without patellar subluxation. The tibial tubercle-trochlear groove distance is approximately 2.2 cm. The distal quadriceps tendon is intact. There is mild patellar tendinosis. Bones and cartilage: There is moderate trabecular bone injury throughout the medial femoral condyle. Mild cortical irregularity is seen in the weight-bearing portion of the medial femoral condyle with mild subchondral linear hypointensities that are suspicious for a minimally impacted insufficiency fracture. There is mild generalized cartilage thinning in the medial femorotibial compartment. The lateral compartment articular cartilages are intact. There is focal full-thickness cartilage loss in the lateral patellar facet and in the lateral femoral trochlea with subchondral cystic changes. Joint space: There is a small joint effusion. A trace medial popliteal cyst is present. Mild generalized fatty infiltration of the musculature surrounding the knee is noted. Mild edema is seen within the musculature surrounding the knee, including the distal biceps femoris muscle, proximal gastrocnemius muscle, popliteus muscle, and the proximal soleus muscle that may indicate low-grade muscle strains. IMPRESSION: 1. Minimally impacted insufficiency fracture at the central weight-bearing portion of the medial femoral condyle with moderate surrounding trabecular bone injury. 2. 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 Mild grade 2 cartilage thinning in the medial compartment. 3. Mild intrasubstance degeneration in the medial and lateral menisci. 4. Mildly congenitally shallow trochlear groove without patellar subluxation. The tibial tubercle-trochlear groove distance is 2.2 cm. 5. Low-grade muscle strains involving the musculature surrounding the the including the biceps femoris muscle, gastrocnemius muscle, and popliteus muscle. 6. Small joint effusion. Dictated by: Adilson Thompson M.D. on 01/20/2021 at 13:44 Approved by: Adilson Thompson M.D. on 01/20/2021 at 13:57
== END ==
PROVIDERS: PCP Family Medicine; Referring Provider Family Medicine; Visit Provider Family Medicine
DX: M25.562 Pain in left knee (principal); M25.362 Other instability, left knee; S72.432A Displaced fracture of medial condyle of left femur, initial encounter for closed fracture; M94.262 Chondromalacia, left knee; S76.812A Strain of other specified muscles, fascia and tendons at thigh level, left thigh, initial encounter; M25.462 Effusion, left knee
CPT/HCPCS: 73721

== ENCOUNTER → 2021-10-30 12:10 | Outpatient (CLI) | payer MEDICARE, MEDICAID, SELFPAY ==
--- NOTE | 2021-10-30 12:12 | DI.MRI.S_ITS ---
PROCEDURE: MR CERVICAL SPINE WO CON INDICATIONS: Progressive cervical stenosis compare with previous TECHNIQUE: Noncontrast sagittal T1 spin echo and T2 fast spin echo, sagittal STIR, foraminal oblique sagittal T2 fast spin echo, and axial gradient echo or T2 fast spin echo through the cervical spine. COMPARISON: [facility], MR, C-SPINE WITHOUT CONTRAST, 01/22/2014, 13:04. FINDINGS: Image quality: Excellent. Alignment and Curvature: There is loss of normal cervical lordosis. Mild grade 1 anterolisthesis of C2 on C3 is present. Bone Marrow: Marrow demonstrates normal overall signal. Mild reactive signal throughout the endplates of the cervical spine. Spinal Cord: Visualized spinal cord has normal size and signal. No cerebellar tonsillar herniation. Paraspinous Soft Tissues: No paravertebral masses. Prevertebral soft tissues are normal in thickness. C2-C3: Congenital canal stenosis. Moderate disc height loss and desiccation. Mild diffuse disc bulge with superimposed central protrusion. Severe canal stenosis. Mild cord flattening. Moderate bilateral foraminal stenosis. C3-C4: Congenital canal stenosis. Moderate disc desiccation. Mild diffuse disc bulge. Moderate facet and uncovertebral hypertrophy bilaterally. Moderate to severe canal stenosis. Minimal cord flattening. Moderate left and mild right foraminal stenosis. No significant change. C4-C5: Congenital canal stenosis. Moderate disc desiccation. Mild diffuse disc bulge. Moderate facet and uncovertebral hypertrophy bilaterally. Moderate to severe canal stenosis. Minimal cord flattening. Severe bilateral foraminal stenosis with bilateral C5 nerve root compression. No significant change. C5-C6: Congenital canal stenosis. Severe disc height loss and desiccation. Mild diffuse disc bulge. Moderate facet and uncovertebral hypertrophy bilaterally. There is moderate to severe canal stenosis. Severe bilateral foraminal stenosis with bilateral C6 nerve root compression. No significant change. C6-C7: Congenital canal stenosis. Moderate disc height loss and desiccation. Mild diffuse disc bulge/osteophyte. Mild facet and uncovertebral hypertrophy bilaterally. Moderate to severe canal stenosis. Minimal cord flattening. Severe bilateral foraminal stenosis with bilateral C7 nerve root compression. No significant change. C7-T1: Congenital canal stenosis. Moderate disc height loss and desiccation. Mild facet and uncovertebral hypertrophy bilaterally. Mild canal stenosis. Mild bilateral foraminal stenosis. No significant change. IMPRESSION: 1. Diffuse congenital canal stenosis with superimposed disc and facet disease, as well as uncovertebral hypertrophy. 2. Multilevel canal stenosis with associated multilevel cord flattening as above. 3. Multilevel foraminal stenosis with associated intraforaminal nerve root compression as described above. Recommend correlation with clinical symptoms to ascertain relevance of these findings. Dictated by: Shereen Sarkar M.D. on 10/30/2021 at 14:08 Approved by: Shereen Sarkar M.D. on 10/30/2021 at 14:12
== END ==
PROVIDERS: PCP Family Medicine; Referring Provider Physical Medicine & Rehabilitation; Visit Provider Physical Medicine & Rehabilitation
DX: M54.12 Radiculopathy, cervical region (principal); M48.02 Spinal stenosis, cervical region
CPT/HCPCS: 72141

== ENCOUNTER 2022-11-11 14:26 | Emergency (ER) | payer MEDICARE, MEDICAID, SELFPAY ==
[2022-11-11 15:04] VITALS: BP 137/82; PULSE 55; RESP 20; TEMP 36.2; O2SAT 97
--- NOTE | 2022-11-11 15:10 | DI.RAD.S_ITS ---
PROCEDURE: XR KNEE LT 3V INDICATIONS: knee pain TECHNIQUE: 3 views of the knee were acquired. COMPARISON: [facility], CR, XR KNEE LT 3V, 01/08/2021, 13:08. FINDINGS: Bones: No fractures or dislocations. No suspicious bony lesions. Mild patellofemoral space Soft tissues: No joint effusion. No suspicious soft tissue calcifications. Diffuse atherosclerotic vascular calcification noted. IMPRESSION: Mild patellofemoral joint space narrowing. No fracture or joint effusion. Approved by: John Swenson M.D. on 11/11/2022 at 14:40
--- NOTE | 2022-11-11 19:17 | ED_ITS ---
HPI - Extremity Problem General Chief complaint: Extremity Problem,Nontraumatic Stated complaint: Knee problems Time Seen by Provider: 11/11/22 19:16 Source: patient Mode of arrival: Family Vehicle History of Present Illness HPI Narrative: 86-year-old male former smoker with history of chronic kidney disease, hyperlipidemia, hypothyroid presents with family in the chief complaint of gradually worsening left knee pain over the past few days in the absence of any injury or trauma. He states he is had increasing pain with ambulation as well as flexion and extension of the knee. He states he has clear improvement with rest. Denies any hip or ankle pain. He is no numbness, tingling or weakness. Denies any low back. He has problems with control of bowel bladder Related Data Previous Rx's Medication Instructions Recorded Disabled Parking Permit ea ##1 05/05/17 alprazolam 0.5 mg tablet 0.5 mg OR HSP PRN #30 tabs 12/10/17 levothyroxine 100 mcg tablet 100 mcg PO QAM #90 tabs 06/13/18 oxycodone 10 mg tablet 10 mg PO QIDP PRN pain #120 tabs 08/01/18 allopurinol 300 mg tablet 300 mg PO QDAY #30 tabs 10/20/18 clopidogrel 75 mg tablet (Plavix) 75 mg PO QDAY #90 tabs 10/20/18 atorvastatin 40 mg tablet 40 mg PO HS #90 tabs 11/11/18 gabapentin 300 mg capsule 600 mg PO 5XD PRN pain #90 caps 03/03/19 (Neurontin) meloxicam 7.5 mg tablet (Mobic) 7.5 mg PO BID PRN pain #10 tabs 01/08/21 Allergies Allergy/AdvReac Type Severity Reaction Status Date / Time morphine AdvReac Mild NON Verified 11/11/22 15:04 EFFECTIVE Review of Systems Review of Systems Narrative: GENERAL: Denies chills, fatigue, malaise, fever, sweats. HEENT: Denies sinus pain, ear pain, sore throat, difficulty swallowing, dizziness. RESPIRATORY: Denies dyspnea, cough, wheezing, hemoptysis, sputum. CARDIOVASCULAR: Denies chest pain, palpitations, orthopnea, edema, GASTROINTESTINAL: Denies nausea, vomiting, abdominal pain, diarrhea, constipation, melena. : Denies dysuria, frequency, incontinence, hematuria, urinary retention. MUSCULOSKELETAL: See HPI SKIN: Denies rash, skin lesions, or other NEUROLOGIC: Denies weakness, headache, numbness, change in speech, confusion, seizures, incoordination. PSYCHIATRIC: No concerning psychosocial issues. 12 point review of systems is negative except for those stated above Patient History Medical History Anemia (Unknown) Anxiety (Unknown) Aphasia (11/2014) Blind left eye (2015) Cervical radiculopathy Chronic back pain (Unknown) CKD (chronic kidney disease) (Unknown) Generalized headaches (Unknown) Gouty arthritis (Unknown) Hearing loss Hx of steroid therapy (~2015) Hyperlipemia (Unknown) Hypertension (Unknown) Hypothyroidism (Unknown) Stroke (11/2014) Uncomplicated opioid dependence Surgical History Hx of total hip arthroplasty (Unknown) Family History Father No problems noted. Mother No problems noted. Social History Smoking Status: Former smoker alcohol intake: never substance use type: does not use Smoking Status: Former smoker Substance Use Type: does not use Exam Narrative Exam Narrative: GEN: AOx3 and in mild distress EYES: Pupils are equal, round, and reactive to light and accommodation. Extraoccular muscles are intact bilaterally. There is no subconjunctival hemorrhage or exudate. CHEST: Lungs are clear to auscultation bilaterally and free of wheezes, rales, or rhonchi. Heart rate is regular rhythm, there are no murmurs, clicks, rubs, or gallops. There is no chest wall tenderness. ABD: Abdomen is soft and nontender. There is no guarding or rebound. Bowel sounds are normal in all 4 quadrants. There is no mass or organomegaly. EXT: No hip or ankle pain. Full but slightly painful range of motion passively and actively of the left knee. Very minimal effusion if any, no erythema, warmth or lymphangitis. No pain with axial load, minimal pain with Walker's test. SKIN: Warm, pink, and dry. No erythema or rash Initial Vital Signs Initial Vital Signs: Vital Signs Temperature 97.2 F L 11/11/22 15:04 Pulse Rate 55 L 11/11/22 15:04 Respiratory Rate 20 11/11/22 15:04 Blood Pressure 137/82 11/11/22 15:04 Pulse Oximetry 97 11/11/22 15:04 Oxygen Delivery Method 11/11/22 15:04 Course Orders Ordered: ED Orders 11/11/22 15:10 XR knee LT 3V Stat Vital Signs Vital signs: Vital Signs - 8 hr 11/11/22 15:04 Temperature 97.2 F L Pulse Rate 55 L Respiratory Rate 20 Blood Pressure 137/82 Pulse Oximetry 97 Oxygen Delivery Method Room Air MDM - Extremity (Nontraumatic) MDM Narrative Medical decision making narrative: 86 male with knee pain in the absence of injury] Multiple etiologies for patient's symptoms considered including, but not limited to: [DVT, cellulitis, Sorto cyst, meniscal injury worse with other] Prior Charts reviewed: Prior notes in our EMR evaluated LImaging reviewed: No acute finding on x-ray. Ultrasound demonstrates no Sorto cyst or DVT Patient's symptoms improved over duration of stay with above-stated therapies. Findings and discharge diagnosis discussed with patient/family followed by verbalization of understanding Return precautions discussed with patient/family whom verbalize understanding of diagnosis and plan Discharge Plan Departure Patient Disposition: Home Clinical Impression: Acute pain of left knee Instructions: DI for Knee Pain Activity Restrictions/Additional Instructions: *You have been diagnosed with [left knee pain. As we discussed your history and physical exam are very reassuring and there is no evidence of fracture or dislocation, joint space infection, gout or blood clot.] *What to do: *Please continue to take your regular medications as directed. [ ] New medication prescriptions sent to your pharmacy: [ ] [ ] New medication written as a paper prescription [ ] No new medications given *Please follow up with your primary care provider in 2-3 days, call for an appointment. Let them know you were seen in the Emergency Department and that we ask that you be seen in follow up. We will electronically transmit a record of today's note if your PCP is in our system *If you do not have a primary care provider please contact the [facility] Resource line at [phone]. They will ask some questions about your medical history and help get you set up with a doctor in the community. * as we mentioned, I have given you contact information for the on-call orthopedist lior, please call the office tomorrow, let them know you were seen in the emergency department and we would like you seen in follow-up. *Return to Emergency Department if you should have any new, worsening or co ncerning symptoms, such as [fever greater than 101 F, shaking chills, worsening pain, persistent vomiting or other bothersome symptoms] Prescriptions: No Action Disabled Parking Permit Qty: 1 0RF alprazolam 0.5 MG tablet 0.5 mg OR HSP PRNQty: 30 0RF levothyroxine 100 mcg tablet 100 mcg PO QAM Qty: 90 3RF oxycodone 10 mg tablet 10 mg PO QIDP PRN (Reason: pain) Qty: 120 0RF Rx Instructions: EXEMPT allopurinol 300 mg tablet 300 mg PO QDAY Qty: 30 5RF clopidogrel [Plavix] 75 mg tablet 75 mg PO QDAY Qty: 90 1RF atorvastatin 40 mg tablet 40 mg PO HS Qty: 90 1RF gabapentin [Neurontin] 300 mg capsule 600 mg PO 5XD PRN (Reason: pain) Qty: 90 0RF meloxicam [Mobic] 7.5 mg tablet 7.5 mg PO BID PRN (Reason: pain) Qty: 10 0RF Referrals: Juan Vo MD [Primary Care Provider] - Deya Dacosta MD [Physician] - Stand Alone Forms: Patient Portal/API
--- NOTE | 2022-11-11 19:29 | DI.US.S_ITS ---
PROCEDURE: US PERIPH VENOUS LOW EXTREM LT INDICATIONS: LEFT POSTERIOR KNEE PAIN, SWELLING TECHNIQUE: Real-time imaging, as well as color and pulse Doppler interrogation, were performed of the lower extremity deep veins from the inguinal ligament to the popliteal fossa. COMPARISON: None. FINDINGS: The common femoral, femoral and popliteal veins are normally compressible, and free of intraluminal thrombus. Color and pulse Doppler demonstrate normal phasic intraluminal flow. There is normal augmentation response to distal compression maneuver. IMPRESSION: No sonographic evidence of DVT. Dictated by: Brett Vaughan M.D. on 11/11/2022 at 19:57 Approved by: Brett Vaughan M.D. on 11/11/2022 at 19:57
== END 2022-11-11 20:05 | disposition home or self-care (01) ==
PROVIDERS: Emergency Provider Emergency Medicine; PCP Family Medicine
DX: M25.562 Pain in left knee (principal)
CPT/HCPCS: 73562; 93971; 99281

== ENCOUNTER → 2023-03-02 14:40 | Outpatient (CLI) | payer MEDICARE, MEDICAID, SELFPAY ==
[2023-03-02 15:49] LABS: Add Manual Diff / Slide Review NO; Basophils Absolute Auto 0 /uL (0-100); Basophils Percent Auto 0.3 % (0-2); Eosinophils Absolute Auto 100 /uL (0-450); Eosinophils Percent Auto 1.2 % (2-4); Hematocrit 37.4 % (41-53); Hemoglobin 12.4 g/dL (13.5-17.5); Lymphocytes Absolute Auto 1900 /uL (1100-4500); Lymphocytes Percent Auto 25.7 % (25-40); Mean Corpuscular Hemoglobin 31.2 PG (26-34); Mean Corpuscular Volume 94.6 fL (80-100); Monocytes Absolute Auto 700 /uL (0-900); Monocytes Percent Auto 9.7 % (3-14); Neutrophils Absolute Auto 4600 /uL (1500-7000); Neutrophils Percent Auto 63.1 % (50-75); Platelet Count 177 X10^3/uL (150-400); Red Blood Cell Count 3.96 X10^6/uL (4.5-5.9); Red Cell Distribution Width 16.6 % (11.6-14.8); White Blood Cell Count 7.3 X10^3/uL (4.5-11.0)
[2023-03-02 16:12] LABS: Alanine Aminotransferase 20 IU/L (<50); Albumin 4.1 g/dL (3.5-5.0); Albumin Globulin Ratio 1.4 (1.0-2.8); Alkaline Phosphatase 115 U/L (38-126); Aspartate Aminotransferase 30 IU/L (17-59); BUN Creatinine Ratio 12.8 (6-22); Bilirubin Total 0.4 mg/dL (0.2-1.3); Blood Urea Nitrogen 14 mg/dL (9-20); Calcium 9.2 mg/dL (8.4-10.2); Carbon Dioxide 30 mmol/L (22-32); Chloride 102 mmol/L (98-107); Cholesterol 139 mg/dL (140-199); Estimated Glomerular Filt Rate > 60 mL/min (>60); Globulin 2.9 g/dL (1.7-4.1); Glucose 106 mg/dL (80-110); HDL Cholesterol 48 mg/dL (40-60); HEMOLYSIS < 15 (0-50); LDL Cholesterol Calculated 61 mg/dL (<100); Potassium 4.2 mmol/L (3.4-5.1); Sodium 137 mmol/L (137-145); Triglycerides 148 mg/dL (35-150)
[2023-03-02 16:28] LABS: Free T4, Direct Thyroxine 1.21 ng/dL (0.78-2.19)
[2023-03-02 16:42] LABS: Thyroid Stimulating Hormone 0.711 uIU/mL (0.47-4.68)
== END ==
PROVIDERS: PCP Family Medicine; Referring Provider Family Medicine; Visit Provider Family Medicine
DX: Z79.899 Other long term (current) drug therapy (principal); E78.00 Pure hypercholesterolemia, unspecified; E03.9 Hypothyroidism, unspecified
CPT/HCPCS: 36415; 80053; 80061; 84439; 84443; 85025

== ENCOUNTER 2024-09-18 15:30 | Inpatient (IN) | payer MEDICARE, MEDICAID, SELFPAY ==
[2024-09-18] VITALS (23 sets, daily range): BP systolic 127–175; BP diastolic 58–118; PULSE 51–91; RESP 16–24; TEMP 36.9; O2SAT 91–99; BMI 26.9
--- NOTE | 2024-09-18 15:39 | DI.RAD.S_ITS ---
PROCEDURE: XR HIP W PEL IF DONE RT 2V INDICATIONS: fall 3 day ago, swelling, unable to ambulate TECHNIQUE: AP pelvis and lateral view of the hip acquired. COMPARISON: [facility], CR, XR PELVIS WITH BILATERAL LATERAL HIPS, 01/18/2023, 14:26. [facility], CR, HIP 2V RIGHT, 12/18/2014, 16:51. FINDINGS: Bones: Patient is status post bilateral hip arthroplasty with hardware positions not significantly changed from previous studies. No definite hardware loosening or failure. No acute periprosthetic fracture is seen. Degenerative disc disease in visualized lower lumbar spine is seen. Soft tissues: Overlying postoperative changes are noted. No suspicious soft tissue densities. IMPRESSION: Prior bilateral total hip arthroplasty. Hip alignment is not significantly changed from 2022 study. No gross acute periprosthetic fracture. No definite hardware loosening or failure. Dictated by: Bon Fuentes M.D. on 09/18/2024 at 16:25 Approved by: Bon Fuentes M.D. on 09/18/2024 at 16:27
--- NOTE | 2024-09-18 15:39 | DI.RAD.S_ITS ---
PROCEDURE: XR KNEE RT 3V INDICATIONS: fall 3 day ago, swelling, unable to ambulate TECHNIQUE: 3 views of the knee were acquired. COMPARISON: [facility], CR, XR KNEE LT 3V, 11/11/2022, 15:11. FINDINGS: Bones: No fractures or dislocations. No significant patellar subluxation. [id number] tricompartmental osteoarthritis is seen more notably in medial femoral tibial compartment. No suspicious bony lesions. Soft tissues: No significant joint effusion. No suspicious soft tissue calcifications. IMPRESSION: No acute right knee fracture or dislocation. [id number] tricompartmental osteoarthritis more notably in medial femoral tibial compartment. No significant joint effusion. Dictated by: Bon Fuentes M.D. on 09/18/2024 at 16:28 Approved by: Bon Fuentes M.D. on 09/18/2024 at 16:28
--- NOTE | 2024-09-18 15:39 | DI.RAD.S_ITS ---
PROCEDURE: XR KNEE LT 3V INDICATIONS: fall 3 day ago, swelling, unable to ambulate TECHNIQUE: 3 views of the knee were acquired. COMPARISON: [facility], CR, XR KNEE LT 3V, 11/11/2022, 15:11. FINDINGS: Bones: No fractures or dislocations. Moderate tricompartmental osteoarthritis is seen. No significant patellar subluxation. No suspicious bony lesions. Soft tissues: Small suprapatella joint effusion. No suspicious soft tissue calcifications. IMPRESSION: No acute left knee fracture or dislocation. Moderate tricompartmental osteoarthritis and small joint effusion. Dictated by: Bon Fuentes M.D. on 09/18/2024 at 16:27 Approved by: Bon Fuentes M.D. on 09/18/2024 at 16:27
--- NOTE | 2024-09-18 15:47 | PC.NURSE ---
Pt is able to ambulate and walk, but c/o worsening pain to right hip, right knee and left knee. Pt has bilateral lower leg edema 2+ pitting and bilateral hemodynamic staining.
--- NOTE | 2024-09-18 20:20 | ED_ITS ---
HPI - Fall General Chief Complaint: Fall Stated Complaint: fall 3 days ago Time Seen by Provider: 09/18/24 19:06 History of Present Illness HPI Narrative: Patient 88-year-old male history of chronic kidney disease hyperlipidemia hypothyroid presenting today with right hip pain. Reports that he fell 3 days ago stumbling and falling backwards. Sounds as though it was a mechanical fall. He initially was able to walk with a walker so they did not come to the ED. However pain has increased over last couple of days. states that she really can not get him in and out of bed anymore due to pain. He has maybe taken some Tylenol at home but it has not helping. He did not hit his head or lose consciousness he has no other symptoms Related Data Home Medications Medication Instructions Recorded Confirmed alprazolam 0.5 mg tablet 0.5 mg OR HSP PRN sleep 09/19/24 09/19/24 Previous Rx's Medication Instructions Recorded Disabled Parking Permit ea ##1 05/05/17 levothyroxine 100 mcg tablet 100 mcg PO QAM #90 tabs 06/13/18 oxycodone 10 mg tablet 10 mg PO QIDP PRN pain #120 tabs 08/01/18 allopurinol 300 mg tablet 300 mg PO QDAY #30 tabs 10/20/18 clopidogrel 75 mg tablet (Plavix) 75 mg PO QDAY #90 tabs 10/20/18 atorvastatin 40 mg tablet 40 mg PO HS #90 tabs 11/11/18 gabapentin 300 mg capsule 600 mg (2 x 300 mg) PO 5XD PRN 03/03/19 (Neurontin) pain #90 caps meloxicam 7.5 mg tablet (Mobic) 7.5 mg PO BID PRN pain #10 tabs 01/08/21 Allergies Allergy/AdvReac Type Severity Reaction Status Date / Time morphine AdvReac Mild NON Verified 11/11/22 15:04 EFFECTIVE Patient History Medical History Cervical radiculopathy Hearing loss Uncomplicated opioid dependence Anxiety (Unknown) Hx of steroid therapy (~2015) Gouty arthritis (Unknown) Hypothyroidism (Unknown) Hyperlipemia (Unknown) CKD (chronic kidney disease) (Unknown) Hypertension (Unknown) Anemia (Unknown) Aphasia (11/2014) Blind left eye (2016) Generalized headaches (Unknown) Stroke (11/2014) Chronic back pain (Unknown) Surgical History Hx of total hip arthroplasty (Unknown) Family History Father No problems noted. Mother No problems noted. Social History household members: spouse Smoking Status: Former smoker alcohol intake: never substance use type: does not use Smoking Status: Former smoker Exam Initial Vital Signs Initial Vital Signs: Vital Signs Blood Pressure 151/91 H 09/18/24 15:33 GENERAL: Alert 88-year-old male, quite charismatic answering all questions HEENT: Head atraumatic,EOMI, pupils reactive, face symmetric, moist mucous membranes NECK: No vertebral tenderness or step-off CARDIOVASCULAR: Regular rate and rhythm without murmurs, rubs or gallops. RESPIRATORY: Breath sounds equal bilaterally, no wheezes rales or rhonchi. ABDOMEN: Soft, nontender. Normoactive bowel sounds all 4 quadrants. No guarding or rebound. EXTREMITIES: Normal range of motion, no clubbing. Both feet are quite swollen but the edema does not extend into the lower leg Neurovascularly intact Right hip pain but he has good flexion extension rotation but it is tender no obvious swelling legs are of equal length NEUROLOGICAL: Alert and oriented x4. Moving all extremities SKIN: Warm, dry, no laceration, no petechiae, no rashes or lesions. Course Orders Ordered: ED Orders 09/18/24 20:27 CT pelvis wo con Stat 09/18/24 23:19 CBC Auto Diff [Complete Blood Count AUTO DIFF] Stat CMP [Comprehensive Metabolic Panel] Stat Acetaminophen (Acetaminophen 325 Mg Tablet) 650 mg PO Q6H PRN PRN Reason: Fever/Mild Pain (1-3) Enoxaparin Sodium (Enoxaparin 40 Mg/0.4 Ml Syringe) 40 mg SUBCUT DAILY DULCE Hydromorphone HCl (Hydromorphone 1 Mg Inj) 1 mg IV Q3H PRN PRN Reason: Pain, Severe(7-10) Last Admin: 09/19/24 01:12 Dose: 1 mg Documented By: Naloxone HCl (Naloxone 0.4 Mg/Ml Vial) 0.2 mg IV Q2MIN PRN PRN Reason: Opiate Reversal Ondansetron HCl (Ondansetron 4 Mg/2 Ml Inj) 4 mg IV Q8HR PRN PRN Reason: Nausea And Vomiting Sennosides (Sennosides 8.6 Mg Tablet) 17.2 mg PO BEDTIME DULCE Discontinued Medications Hydrocodone Bitart/Acetaminophen (Hydrocodone/Acet 5/325 Tablet) 1 tab PO NOW ONE Stop: 09/18/24 20:28 Last Admin: 09/18/24 21:08 Dose: 1 tab Documented By: BS Hydromorphone HCl (Hydromorphone 0.5 Mg Inj) 0.5 mg IV NOW ONE Stop: 09/18/24 22:24 Last Admin: 09/18/24 23:24 Dose: 0.5 mg Documented By: SB Vital Signs Vital signs: Vital Signs - 8 hr 09/18/24 19:01 09/18/24 19:30 09/18/24 19:30 Pulse Rate 53 L Respiratory Rate Blood Pressure 149/92 H 175/74 H Pulse Oximetry 97 Oxygen Delivery Method 09/18/24 20:00 09/18/24 20:11 09/18/24 20:11 Pulse Rate 57 L 59 L Respiratory Rate Blood Pressure 128/64 Pulse Oximetry 91 99 Oxygen Delivery Method 09/18/24 20:31 09/18/24 20:31 09/18/24 21:00 Pulse Rate 81 91 H Respiratory Rate Blood Pressure 149/62 H Pulse Oximetry Oxygen Delivery Method 09/18/24 21:30 09/18/24 21:35 09/18/24 21:35 Pulse Rate 51 L 54 L Respiratory Rate 20 Blood Pressure 161/58 H Pulse Oximetry 98 92 Oxygen Delivery Method Room Air MDM - Fall Lab Data 09/18/24 23:19 09/18/24 23:19 Imaging Data Extremity x-ray #1: Radiologist's Impression: PROCEDURE: XR HIP W PEL IF DONE RT 2V INDICATIONS: fall 3 day ago, swelling, unable to ambulate TECHNIQUE: AP pelvis and lateral view of the hip acquired. COMPARISON: [facility], CR, XR PELVIS WITH BILATERAL LATERAL HIPS, 01/18/2023, 14:26. [facility], CR, HIP 2V RIGHT, 12/18/2014, 16:51. FINDINGS: Bones: Patient is status post bilateral hip arthroplasty with hardware positions not significantly changed from previous studies. No definite hardware loosening or failure. No acute periprosthetic fracture is seen. Degenerative disc disease in visualized lower lumbar spine is seen. Soft tissues: Overlying postoperative changes are noted. No suspicious soft tissue densities. IMPRESSION: Prior bilateral total hip arthroplasty. Hip alignment is not significantly changed from 2022 study. No gross acute periprosthetic fracture. No definite hardware loosening or failure. Dictated by: oBn Fuentes M.D. on 09/18/2024 at 16:25 Approved by: Bon Fuentes M.D. on 09/18/2024 at 16:27 Extremity x-ray #2: Radiologist's Impression: PROCEDURE: XR KNEE LT 3V INDICATIONS: fall 3 day ago, swelling, unable to ambulate TECHNIQUE: 3 views of the knee were acquired. COMPARISON: [facility], , XR KNEE LT 3V, 11/11/2022, 15:11. FINDINGS: Bones: No fractures or dislocations. Moderate tricompartmental osteoarthritis is seen. No significant patellar subluxation. No suspicious bony lesions. Soft tissues: Small suprapatella joint effusion. No suspicious soft tissue calcifications. IMPRESSION: No acute left knee fracture or dislocation. Moderate tricompartmental osteoarthritis and small joint effusion. Dictated by: Bon Fuentes M.D. on 09/18/2024 at 16:27 Extremity x-ray #3: Radiologist's Impression: PROCEDURE: XR KNEE RT 3V INDICATIONS: fall 3 day ago, swelling, unable to ambulate TECHNIQUE: 3 views of the knee were acquired. COMPARISON: [facility], , XR KNEE LT 3V, 11/11/2022, 15:11. FINDINGS: Bones: No fractures or dislocations. No significant patellar subluxation. Ppzm-[id number]-[id number] tricompartmental osteoarthritis is seen more notably in medial femoral tibial compartment. No suspicious bony lesions. Soft tissues: No significant joint effusion. No suspicious soft tissue calcifications. IMPRESSION: No acute right knee fracture or dislocation. Afyd-[id number] tricompartmental osteoarthritis more notably in medial femoral tibial compartment. No significant joint effusion. Dictated by: Bon Fuentes M.D. on 09/18/2024 at 16:28 CT pelvis: Radiologist's Impression: PROCEDURE: CT PEL WO CON INDICATIONS: right hip pain fall 3 days ago TECHNIQUE: Noncontrast 3 mm axial sections acquired through the bony pelvis, with coronal and sagittal reformatting. COMPARISON: [facility], CR, XR HIP W PEL IF DONE RT 2V, 09/18/2024, 15:39. FINDINGS: Image quality: Excellent. Bones: Bilateral hip arthroplasties. 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 There is a cortical step-off along the inner margin of the right ischium. (series 3, image 74). Decreased bone mineralization. Degenerative changes about the pubic symphysis, sacroiliac joints and visualized lumbar spine. Buckling of the right inferior pubic ramus (series 5, image 86). Soft tissues: No extraperitoneal hematoma. Visualized abdominal organs are unremarkable. 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 Mildly displaced fracture of the right inferior pubic ramus. Dictated by: Ric Gunderson M.D. on 09/18/2024 at 20:54 MDM Narrative Medical decision making narrative: Patient 88-year-old male presents today with right hip pain. He is really unable to bear weight it sounds like. X-rays have been reviewed and negative for fracture. He has no evidence of head injury no nausea vomiting or focal deficits. No other source of injury . Just with family we will go ahead and get CT to rule out occult fracture he was given pain pill as well. CT pelvis does show right ischial fracture along with a right inferior pubic rami fracture Dr. [place] updated on patient's symptoms CT reviewed conservative management only no need for surgery or transfer may weightbear as tolerated Patient was given [place] he really is not able to go home with his . Still requiring significant assistance still having significant pain with any kind of movement. states that he has really not able to get out of bed. Blood work reviewed overall reassuring , accepts to observation for pain control Discharge Plan Departure Patient Disposition: Admitted as Observation Clinical Impression: Closed pelvic fracture Admit Date/Time: 09/18/24 22:46 Admit Provider: Watson Devine
--- NOTE | 2024-09-18 20:27 | DI.CT.S_ITS ---
PROCEDURE: CT PEL WO CON INDICATIONS: right hip pain fall 3 days ago TECHNIQUE: Noncontrast 3 mm axial sections acquired through the bony pelvis, with coronal and sagittal reformatting. COMPARISON: [facility], CR, XR HIP W PEL IF DONE RT 2V, 09/18/2024, 15:39. FINDINGS: Image quality: Excellent. Bones: Bilateral hip arthroplasties. 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 There is a cortical step-off along the inner margin of the right ischium. (series 3, image 74). Decreased bone mineralization. Degenerative changes about the pubic symphysis, sacroiliac joints and visualized lumbar spine. Buckling of the right inferior pubic ramus (series 5, image 86). Soft tissues: No extraperitoneal hematoma. Visualized abdominal organs are unremarkable. 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 Mildly displaced fracture of the right inferior pubic ramus. Dictated by: Ric Gunderson M.D. on 09/18/2024 at 20:54 Approved by: Ric Gunderson M.D. on 09/18/2024 at 20:58
[2024-09-18] MEDS: HYDROCODONE/ACET 5/325 TABLET 1 TAB PO (21:08)
--- NOTE | 2024-09-18 22:05 | PC.NURSE ---
Ambulation trial with walker per provider verbal direction. Pt needs assistance getting to standing, but is able to stand and take a few steps. Needs to sit quickly due to pain. Provider made aware.
[2024-09-18] MEDS: HYDROMORPHONE 0.5 MG INJ IV (23:24)
[2024-09-18 23:26] LABS: Add Manual Diff / Slide Review NO; Basophils Absolute Auto 0 /uL (0-100); Basophils Percent Auto 0.4 % (0-2); Eosinophils Absolute Auto 0 /uL (0-450); Eosinophils Percent Auto 0.2 % (2-4); Hematocrit 33.1 % (41-53); Hemoglobin 10.8 g/dL (13.5-17.5); Lymphocytes Absolute Auto 1600 /uL (1100-4500); Lymphocytes Percent Auto 18.3 % (25-40); Mean Corpuscular HGB Conc 32.5 % (30-36); Mean Corpuscular Hemoglobin 30.9 PG (26-34); Mean Corpuscular Volume 94.9 fL (80-100); Monocytes Absolute Auto 800 /uL (0-900); Monocytes Percent Auto 8.6 % (3-14); Neutrophils Absolute Auto 6400 /uL (1500-7000); Neutrophils Percent Auto 72.5 % (50-75); Platelet Count 244 X10^3/uL (150-400); Red Blood Cell Count 3.49 X10^6/uL (4.5-5.9); Red Cell Distribution Width 16.4 % (11.6-14.8); White Blood Cell Count 8.9 X10^3/uL (4.5-11.0)
--- NOTE | 2024-09-18 23:33 | PM.HP.1 ---
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 Since then with progressive pain of upper leg and hip with great difficulties ambulating. Initial Xrays non-revealing, CT shows Rt ischial and Rt inferior ramus fractures. Orthopedist recommending conservative management and WBAT on RLE. Placed in observation for pain control, PT and OT evaluation and supportive care. [facility] Medical History Cervical radiculopathy Hearing loss Uncomplicated opioid dependence Anxiety (Unknown) Hx of steroid therapy (~2015) Gouty arthritis (Unknown) Hypothyroidism (Unknown) Hyperlipemia (Unknown) CKD (chronic kidney disease) (Unknown) Hypertension (Unknown) Anemia (Unknown) Aphasia (11/2014) Blind left eye (2015) Generalized headaches (Unknown) Stroke (11/2014) Chronic back pain (Unknown) Surgical History Hx of total hip arthroplasty (Unknown) Family History Father No problems noted. Mother No problems noted. Social History household members: spouse Smoking Status: Former smoker alcohol intake: never substance use type: does not use Meds Home Medications and Allergies Home Medications Medication Instructions Recorded Confirmed Type levothyroxine 100 mcg tablet 100 mcg PO QAM #90 tabs 06/13/18 09/19/24 Rx oxycodone 10 mg tablet 10 mg PO QIDP PRN pain #120 tabs 08/01/18 09/19/24 Rx allopurinol 300 mg tablet 300 mg PO QDAY #30 tabs 10/20/18 09/19/24 Rx clopidogrel 75 mg tablet (Plavix) 75 mg PO QDAY #90 tabs 10/20/18 09/19/24 Rx atorvastatin 40 mg tablet 40 mg PO HS #90 tabs 11/11/18 09/19/24 Rx gabapentin 300 mg capsule 600 mg (2 x 300 mg) PO 5XD PRN 03/03/19 09/19/24 Rx (Neurontin) pain #90 caps alprazolam 0.5 mg tablet 0.5 mg OR HSP PRN sleep 09/19/24 09/19/24 History Allergies Allergy/AdvReac Type Severity Reaction Status Date / Time morphine AdvReac Mild NON Verified 11/11/22 15:04 EFFECTIVE Review of Systems Constitutional Comments: w/o fever or chills Cardiovascular Comments: w/o chest pain or palpitations Respiratory Comments: w/o shortness of breath Gastrointestinal Comments: w/;o N/V Musculoskeletal Comments: right hip and thigh pain, worse with bearing weight and sitting then with laying down Exam Vital Signs (past 8 hours): - 09/18/24 15:36 09/18/24 15:42 09/18/24 15:42 Temperature 98.4 F Pulse Rate 71 68 Respiratory Rate 16 Blood Pressure 151/91 H 156/67 H Pulse Oximetry 97 98 Oxygen Delivery Method Room Air 09/18/24 16:08 09/18/24 16:30 09/18/24 17:00 Temperature Pulse Rate 68 51 L 52 L Respiratory Rate Blood Pressure Pulse Oximetry 96 98 98 Oxygen Delivery Method 09/18/24 17:14 09/18/24 17:14 09/18/24 17:30 Temperature Pulse Rate 54 L 55 L Respiratory Rate Blood Pressure 175/70 H Pulse Oximetry 97 98 Oxygen Delivery Method 09/18/24 17:30 09/18/24 17:44 09/18/24 17:44 Temperature Pulse Rate 57 L Respiratory Rate 20 Blood Pressure 159/118 H 168/70 H Pulse Oximetry 98 Oxygen Delivery Method 09/18/24 18:00 09/18/24 18:00 09/18/24 18:30 Temperature Pulse Rate 51 L 52 L Respiratory Rate 24 22 Blood Pressure 153/67 H Pulse Oximetry 98 98 Oxygen Delivery Method 09/18/24 18:31 09/18/24 18:31 09/18/24 19:01 Temperature Pulse Rate 52 L Respiratory Rate 20 Blood Pressure 170/73 H 149/92 H Pulse Oximetry 98 Oxygen Delivery Method Room Air 09/18/24 19:30 09/18/24 19:30 09/18/24 20:00 Temperature Pulse Rate 53 L 57 L Respiratory Rate Blood Pressure 175/74 H Pulse Oximetry 97 91 Oxygen Delivery Method 09/18/24 20:11 09/18/24 20:11 09/18/24 20:31 Temperature Pulse Rate 59 L 81 Respiratory Rate Blood Pressure 128/64 Pulse Oximetry 99 Oxygen Delivery Method 09/18/24 20:31 09/18/24 21:00 09/18/24 21:30 Temperature Pulse Rate 91 H 51 L Respiratory Rate Blood Pressure 149/62 H Pulse Oximetry 98 Oxygen Delivery Method 09/18/24 21:35 09/18/24 21:35 Temperature Pulse Rate 54 L Respiratory Rate 20 Blood Pressure 161/58 H Pulse Oximetry 92 Oxygen Delivery Method Room Air Oxygen Delivery Method Room Air Const Other: in no distress HENMT Other: atraumatic Neck Other: supple Resp Other: normal respiratory effort Cardio Other: RRR Skin Other: w/op significant bruising or rashes Neuro Other: chronic Rt hemiparesis and expressive aphasia, apparently Rt neglect as well Extrem Other: w/o deformities or visible swelling Psych Other: anxious Objective ECG Impression: NSR Labs 09/18/24 23:19 09/18/24 23:19 Labs: Laboratory Results - last 24 hr 09/18/24 23:19 WBC 8.9 RBC 3.49 L Hgb 10.8 L Hct 33.1 L MCV 94.9 MCH 30.9 MCHC 32.5 RDW 16.4 H Plt Count 244 Neut % (Auto) 72.5 Lymph % (Auto) 18.3 L [place] % (Auto) 8.6 Eos % (Auto) 0.2 L Baso % (Auto) 0.4 Neut # (Auto) 6400 Lymph # (Auto) 1600 [place] # (Auto) 800 Eos # (Auto) 0 Baso # (Auto) 0 Assessment & Plan Assessment and plan (1) Closed pelvic fracture: Qualifiers: Encounter type: initial encounter Pelvic bone location: multiple parts Fracture alignment: with stable disruption of pelvic ring Qualified Code(s): S32.810A - Multiple fractures of pelvis with stable disruption of pelvic ring, initial encounter for closed fracture Status: Acute (2) Hemiparesis affecting right side as late effect of cerebrovascular accident: Status: Acute (3) 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): Status: None (4) Anxiety: Status: Chronic (5) Hypothyroidism: Qualifiers: Hypothyroidism type: acquired Qualified Code(s): E03.9 - Hypothyroidism, unspecified Status: Chronic (6) Hyperlipemia: Qualifiers: Hyperlipidemia type: mixed hyperlipidemia Qualified Code(s): E78.2 - Mixed hyperlipidemia Status: Chronic (7) CKD (chronic kidney disease): Qualifiers: Chronic kidney disease stage: stage 3 (moderate) Chronic kidney disease stage 3 subtype: stage 3a (GFR 45-59) Qualified Code(s): N18.31 - Chronic kidney disease, stage 3a Status: Chronic (8) Uncomplicated opioid dependence: Status: Chronic (9) Blind left eye: Qualifiers: Right eye visual impairment category: right - normal vision Qualified Code(s): H54.40 - Blindness, one eye, unspecified eye Status: Chronic (10) Chronic back pain: Problem details: years Qualifiers: Back pain location: low back pain Back pain laterality: bilateral Sciatica presence: unspecified whether sciatica present Qualified Code(s): M54.5 - Low back pain; G89.29 - Other chronic pain Status: Chronic Assessment & Plan narrative: Pelvic Fracture - Rt ischium and inferior pubic ramus - accidental GLF with chronically impaired mobility - pain managemnt - WBAT - PT, OT assessment Hx of Lt MCA CVA - Rt hemiparesis and expressive aphasia since - Plavix, statin Hypothyroidism - levothyroxine 100 mcg daily - TSH pending Gout - Allopurinol Anxiety - Xanax DVT prophylaxis - Lovenox Time-Based Coding :: [TOTAL MINUTES] spent with patient and on the chart (including review of chart, obtaining history, exam, reviewing outside data, placing orders, documenting exam and treatment plan, and counseling patient) on [DATE].
[2024-09-18 23:41] LABS: Alanine Aminotransferase 23 IU/L (<50); Albumin 3.7 g/dL (3.5-5.0); Albumin Globulin Ratio 1.2 (1.0-2.8); Alkaline Phosphatase 101 U/L (38-126); Aspartate Aminotransferase 35 IU/L (17-59); BUN Creatinine Ratio 19.5 (6-22); Bilirubin Total 1.4 mg/dL (0.2-1.3); Blood Urea Nitrogen 22 mg/dL (9-20); Calcium 9.3 mg/dL (8.4-10.2); Carbon Dioxide 27 mmol/L (22-32); Chloride 106 mmol/L (98-107); Estimated Glomerular Filt Rate > 60 mL/min (>60); Glucose 122 mg/dL (80-110); HEMOLYSIS < 15 (0-50); Potassium 4.3 mmol/L (3.4-5.1); Sodium 137 mmol/L (137-145); Total Protein 6.7 g/dL (6.3-8.2)
[2024-09-19] VITALS: BP 138/49; PULSE 68; RESP 16; TEMP 36.8; O2SAT 94
[2024-09-19 00:04] VITALS: BMI 26.9
[2024-09-19] MEDS: HYDROMORPHONE 1 MG INJ IV ×3 (01:12→09:18)
[2024-09-19] MEDS: LEVOTHYROXINE 100 MCG TABLET PO (06:20)
[2024-09-19 06:37] LABS: Add Manual Diff / Slide Review NO; Basophils Absolute Auto 0 /uL (0-100); Basophils Percent Auto 0.3 % (0-2); Eosinophils Absolute Auto 100 /uL (0-450); Eosinophils Percent Auto 0.7 % (2-4); Hematocrit 29.5 % (41-53); Hemoglobin 9.8 g/dL (13.5-17.5); Lymphocytes Absolute Auto 1500 /uL (1100-4500); Mean Corpuscular HGB Conc 33.2 % (30-36); Mean Corpuscular Hemoglobin 31.1 PG (26-34); Mean Corpuscular Volume 93.8 fL (80-100); Monocytes Absolute Auto 600 /uL (0-900); Monocytes Percent Auto 9.1 % (3-14); Neutrophils Absolute Auto 4800 /uL (1500-7000); Neutrophils Percent Auto 68.9 % (50-75); Platelet Count 208 X10^3/uL (150-400); Red Blood Cell Count 3.14 X10^6/uL (4.5-5.9); Red Cell Distribution Width 16.2 % (11.6-14.8); White Blood Cell Count 6.9 X10^3/uL (4.5-11.0)
[2024-09-19 06:46] LABS: Blood Urea Nitrogen 22 mg/dL (9-20); Calcium 8.9 mg/dL (8.4-10.2); Carbon Dioxide 26 mmol/L (22-32); Chloride 106 mmol/L (98-107); Estimated Glomerular Filt Rate > 60 mL/min (>60); Glucose 100 mg/dL (80-110); HEMOLYSIS < 15 (0-50); Potassium 4.5 mmol/L (3.4-5.1); Sodium 137 mmol/L (137-145)
[2024-09-19 07:00] VITALS: BP 134/48; PULSE 61; RESP 17; TEMP 36.4; O2SAT 97
[2024-09-19 07:16] LABS: Thyroid Stimulating Hormone 2.67 uIU/mL (0.47-4.68)
--- NOTE | 2024-09-19 07:35 | P.PN_ITS ---
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 Since then with progressive pain of upper leg and hip with great difficulties ambulating. Initial Xrays non-revealing, CT shows Rt ischial and Rt inferior ramus fractures. Orthopedist recommending conservative management and WBAT on RLE. Placed in observation for pain control, PT and OT evaluation and supportive care. S: He was doing well today, he still has significant pain. He denies any abdominal pain, chest pain or shortness a breath. Exam Vital Signs (past 8 hours): - 09/18/24 23:38 09/18/24 23:38 09/19/24 00:00 Temperature 98.3 F Pulse Rate 58 L 68 Respiratory Rate 16 Blood Pressure 127/61 138/49 L Pulse Oximetry 97 94 Oxygen Delivery Method Room Air Oxygen Flow Rate 0 Oxygen Delivery Method Room Air Oxygen Flow Rate 0 Narrative Exam Narrative: NAD, alert and oriented. Fluent speech. Lungs are clear, normal rate and effort. Heart is regular, no murmur gallop or rub. Abdomen is soft, non distended. Extremities are with chronic edema and venous stasis changes. Objective Imaging CT Pelvis:: Radiologist's impression: Cortical step-off along the inner margin of the right ischium, likely a pathologic fracture due to the presence of particle disease. Mildly displaced fracture of the right inferior pubic ramus. Labs 09/19/24 06:00 09/19/24 06:00 Labs: Laboratory Results - last 24 hr 09/18/24 09/19/24 23:19 06:00 WBC 8.9 6.9 RBC 3.49 L 3.14 L Hgb 10.8 L 9.8 L Hct 33.1 L 29.5 L MCV 94.9 93.8 MCH 30.9 31.1 MCHC 32.5 33.2 RDW 16.4 H 16.2 H Plt Count 244 208 Neut % (Auto) 72.5 68.9 Lymph % (Auto) 18.3 L 21.0 L [place] % (Auto) 8.6 9.1 Eos % (Auto) 0.2 L 0.7 L Baso % (Auto) 0.4 0.3 Neut # (Auto) 6400 4800 Lymph # (Auto) 1600 1500 [place] # (Auto) 800 600 Eos # (Auto) 0 100 Baso # (Auto) 0 0 Sodium 137 137 Potassium 4.3 4.5 Chloride 106 106 Carbon Dioxide 27 26 BUN 22 H 22 H Creatinine 1.13 1.00 Estimated GFR > 60 > 60 BUN/Creatinine Ratio 19.5 22.0 Glucose 122 H 100 Calcium 9.3 8.9 Total Bilirubin 1.4 H AST 35 ALT 23 Alkaline Phosphatase 101 Total Protein 6.7 Albumin 3.7 Globulin 3.0 Albumin/Globulin Ratio 1.2 TSH 2.67 PFSH Medical History Cervical radiculopathy Hearing loss Uncomplicated opioid dependence Anxiety (Unknown) Hx of steroid therapy (~2015) Gouty arthritis (Unknown) Hypothyroidism (Unknown) Hyperlipemia (Unknown) CKD (chronic kidney disease) (Unknown) Hypertension (Unknown) Anemia (Unknown) Aphasia (11/2014) Blind left eye (2015) Generalized headaches (Unknown) Stroke (11/2014) Chronic back pain (Unknown) Surgical History Hx of total hip arthroplasty (Unknown) Family History Father No problems noted. Mother No problems noted. Social History household members: spouse Smoking Status: Former smoker alcohol intake: never substance use type: does not use Assessment & Plan Assessment & Plan narrative: 1. Pelvic Fracture - Rt ischium and inferior pubic ramus, present on admission and active. - accidental GLF with chronically impaired mobility - pain managemnt - WBAT - PT, OT assessment. PT recommends a wheelchair. 2. Hx of Lt MCA CVA, stable - Rt hemiparesis and expressive aphasia since - Plavix, statin 3. Hypothyroidism, stable - levothyroxine 100 mcg daily - TSH pending 4. Gout, stable - Allopurinol 5. Anxiety, stable - Xanax Plan: -pain control -physical therapy -he declined detention facility rehab and lives with his in [place]. ANISHA: 1-2 days. DVT prophylaxis - Lovenox Time-Based Coding :: [TOTAL MINUTES] spent with patient and on the chart (including review of chart, obtaining history, exam, reviewing outside data, placing orders, documenting exam and treatment plan, and counseling patient) on [DATE].
--- NOTE | 2024-09-19 08:08 | OT.IP.EVAL ---
Current Diagnoses Hypothyroidism, unspecified (09/18/24) Mixed hyperlipidemia (09/18/24) Opioid dependence, uncomplicated (09/18/24) Anxiety disorder, unspecified (09/18/24) Other chronic pain (09/18/24) Blindness, one eye, unspecified eye (09/18/24) Aphasia following cerebral infarction (09/18/24) Hemiplegia and hemiparesis following cerebral infarction affecting right dominant side (09/18/24) Low back pain (09/18/24) Chronic kidney disease, stage 3a (09/18/24) Multiple fractures of pelvis with stable disruption of pelvic ring, initial encounter for closed fracture (09/18/24) Past Medical History (Last Reviewed 09/19/24 @ 07:36 by Denver Lu MD) Anemia (Unknown) Anxiety (Unknown) Aphasia (11/2014) Blind left eye (2015) Cervical radiculopathy Chronic back pain (Unknown) CKD (chronic kidney disease) (Unknown) Generalized headaches (Unknown) Gouty arthritis (Unknown) Hearing loss Hx of steroid therapy (~2015) Hyperlipemia (Unknown) Hypertension (Unknown) Hypothyroidism (Unknown) Stroke (11/2014) Uncomplicated opioid dependence Surgical History (Last Reviewed 09/19/24 @ 07:36 by Denver Lu MD) Hx of total hip arthroplasty (Unknown) Occupational Therapy Inpatient Evaluation/Re-Eval M1 PT/OT-IP Prior Functional Status Start: 09/19/24 08:09 Freq: NEEDED Status: Active Protocol: Document 09/19/24 08:09 CGR (Rec: 09/19/24 08:29 CGR [id number]) Medical Review Prior Functional Status Medical History Reviewed Yes Communication Pt is an effective communicator most of the time with extra time. 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 Mobility and Gait Pt was IND in mobility prior to fall without AD. Activities of Daily Living and IADL's Pt was IND in ADLs at baseline without AD Prior Functional Level (Other details) Pt says he has been using the 4ww since his fall because of pain. Social History Household Members spouse Living Arrangements Apartment/Condo Number of Stairs To Enter/Railing? elevator Home Environment Standard Height Toilet,Walk in Shower,Elevator Home Equipment Four Wheel Walker,Hand Held Shower,Grab Bars Near Toilet, Grab Bars In Shower Employment Status Retired Additional Social History Comment Pt states he lives in a care home community on [address] [place] [address], chart gives an address on commercial. Unable to determine exactly where he lives. Will confirm with spouse when she is here. M2 OT-IP Current Condition Start: 09/19/24 08:09 Freq: Status: Active Protocol: Document 09/19/24 08:09 CGR (Rec: 09/19/24 08:29 CGR [id number]) Occupational Therapy Current Condition Current Condition Evaluation Date 09/19/24 Treatment Diagnosis GLF with R ischial and R inferior ramus fx Diagnosis Onset Date 09/18/24 Weight Bearing Status Weight Bearing Status Weight Bear as Tolerated M3 OT- IP Subjective and Pain Start: 09/19/24 08:09 Freq: Status: Active Protocol: Document 09/19/24 08:09 CGR (Rec: 09/19/24 08:29 CGR [id number]) OT- Subjective Occupational Therapy Visit Type Type Initial Evaluation Visit Start Time 07:30 Visit Stop Time 08:08 Notes Pt agreeable to mobility. OT Pain Assessment Pain When Pain Assessed During Mobility Pain Present Pain Present Pain Reported Location right hip Scale Used did not rate Pain Behaviors Facial Grimacing,Guarding, Wincing Management Techniques Modification of Treatment,Re- positioning M4 OT- IP ADL's Start: 09/19/24 08:09 Freq: Status: Active Protocol: Document 09/19/24 08:09 CGR (Rec: 09/19/24 08:29 CGR [id number]) OT [id number] General Evaluation Self-Feeding Ability Minimal Assistance Areas Needing Assistance Opening Containers Comments OT Self-Feeding Comments Pt needed assist to open containers OT ADL-Grooming General Evaluation Grooming Ability Standby Assistance Areas Needing Assistance Face Washing Comments OT Grooming Comments standing at sink OT ADL-Oral Care General Eval Oral Care Ability Minimal Assistance Areas of Assistance Brushing Teeth,Retrieving/Set- Up of Items Comments Oral Care Comments pt requests assist with getting tooth paste on tooth brush. OT ADL-Dressing General Eval Lower Body Dressing Ability Maximum Assistance Areas Needing Assistance Socks Comments OT Dressing Comments supine in bed, pt holds up feet for easy of donning socks . OT ADL-Toileting Comments OT Toileting Comments not performed OT ADL-Bathing Comments OT Bathing Comments not performed M5 OT- IP IADL's Start: 09/19/24 08:09 Freq: Status: Active Protocol: Document 09/19/24 08:09 CGR (Rec: 09/19/24 08:29 CGR [id number]) OT-Instrumental Activities of Daily Living Deficits IADL Deficits Identified No Deficits Home Safety Awareness Awareness of Need for Assistance at Home Good Awareness Ability to Problem Solve Emergency Able to Problem Solve Situations Medication Management Medication Management Caregiver Administers Money Management Money Management Caregiver Provides Assistance Meal Preparation Meal Preparation Caregiver Provides Assist High Lift Operator High Lift Operator Caregiver Provides Assist M6 OT- IP Functional Cognition Start: 09/19/24 08:09 Freq: Status: Active Protocol: Document 09/19/24 08:09 CGR (Rec: 09/19/24 08:29 CGR [id number]) Cognitive Factors Limiting Selfcare Function Cognitive Ability Level of Alertness Alert Patient Orientation Name,Age,Birthday,Month,Date, Year,Day of Week,Place, Situation Attention Span Ability Capable of Focused Attention, Capable of Sustained Attention Ability to Follow Commands Able to Follow One Step Commands with Increased Time, Able to Follow One Step Commands with Repetition Cognitive Comments Cognitive Assessment Comments Pt appears to be cognitively intact but can appear confused because of his expressive aphasia OT- Vision and Hearing OT- Hearing Assessment OT- Hearing Assessment WFL OT- Vision Assessment Visual Acuity Glasses For Reading Visual Attentiveness WFL Vision Assessment Comments occular pursuits are jumpy and preemptive vs smooth as they should be. M7 OT- IP Mobility and Balance Start: 09/19/24 08:09 Freq: Status: Active Protocol: Document 09/19/24 08:09 CGR (Rec: 09/19/24 08:29 CGR [id number]) OT- Bed Mobility Assessment Supine to Sit Supine to Sit Assist Standby Assistance Scooting Scooting to Edge of Bed Standby Assistance OT-Transfer Assessment Sit to and From Stand Sit to and from Stand Minimal Assistance Transfers Transfer Ability Minimal Assistance Technique Transfer Destination Bed,Chair Transfer Technique Stand Step Pivot Devices Transfer Assistive Devices Gait Belt,4 Wheeled Walker Comments Mobility Comments Pt wanted to use his 4WW but was agreeable to keeping it locked for better control. Later in session pt edcuated on use of 2ww and says he is agreeable to trying it next time. OT- Gait Assessment Gait Gait Assistance Required: Minimum Assistance Assistive Devices Assistive Device Gait Belt,4 Wheeled Walker Comments Gait Ability Comments to sink and return to chair ~ 15 feet total. OT- Balance Assessment Sitting Balance and Reactions Static Sitting Balance Ability Good Dynamic Sitting Balance Ability Good M8 OT- IP Objective Assessments Start: 09/19/24 08:09 Freq: Status: Active Protocol: Document 09/19/24 08:09 CGR (Rec: 09/19/24 08:29 CGR [id number]) OT Gross Range of Motion Upper Extremity Range of Motion Assessment Within Functional Limits OT Strength Upper Extremity Strength Assessment Within Functional Limits Comments Strength Comments grossly 4/5, no specific weakness noted OT- Coordination Assessment Upper Extremity Finger to Nose Test Within Functional Limits Finger Tapping Test Bilateral UE Impaired Comments Coordination Comments pt with poor fine coordination as seen in testing but also in pt requesting assist for tooth paste on brush and opening of containers. OT Sensation Assessment Edema Edema Absent M9 OT- IP Assessment and Plan Start: 09/19/24 08:09 Freq: Status: Active Protocol: Document 09/19/24 08:09 CGR (Rec: 09/19/24 08:29 CGR [id number]) OT Summary Assessment and Plan Potential Rehabilitation Potential Good Analytic Complexity at Evaluation Moderate Summary OT Impairments Pain,Balance,Coordination, Functional Mobility,Grooming, Dressing,Toileting,Bathing, Toilet Transfers,Shower Transfers,Activity Tolerance Progress Towards Goals Slow Progress due to Pain Assessment Summary Pt presents as a moderate complexity evaluation s/p admit for fall and R ischial and inferior ramus fx. Pt is doing well and is able to push through pain for mobility but he is very limited in distance d/t pain. At this time, recommend SNF for a safe discharge. Goals Self-Feeding Goal Independent Grooming Goal Independent Dressing Goal Independent Toileting Goal Independent Bathing Goal Independent Toilet Transfer Goal Independent Shower Transfer Goal Independent Days to Meet Goals 15 Frequency of Treatment Other frequency 5x a week Treatment Plan OT Treatment Plan ADL Training,Functional Mobility,Patient/Family Education,Discharge Planning Other Treatment Recommendations and Next Shower, ADLs standing Treatment Focus Discharge Recommendations OT Discharge Recommendations SNF Rehab Transportation Needs at Discharge Wheelchair/Cabulance
[2024-09-19] MEDS: ENOXAPARIN 40 MG/0.4 ML SYRINGE SUBCUT (09:19)
[2024-09-19] MEDS: CLOPIDOGREL 75 MG TABLET PO (09:19)
[2024-09-19] MEDS: allopurinoL 100 MG TABLET 300 MG PO (09:19)
--- NOTE | 2024-09-19 10:20 | PT.IIE ---
Current Diagnoses Hypothyroidism, unspecified (09/18/24) Mixed hyperlipidemia (09/18/24) Opioid dependence, uncomplicated (09/18/24) Anxiety disorder, unspecified (09/18/24) Other chronic pain (09/18/24) Blindness, one eye, unspecified eye (09/18/24) Aphasia following cerebral infarction (09/18/24) Hemiplegia and hemiparesis following cerebral infarction affecting right dominant side (09/18/24) Low back pain (09/18/24) Chronic kidney disease, stage 3a (09/18/24) Multiple fractures of pelvis with stable disruption of pelvic ring, initial encounter for closed fracture (09/18/24) Surgical History (Last Reviewed 09/19/24 @ 07:36 by Denver Lu MD) Hx of total hip arthroplasty (Unknown) Medical History (Last Reviewed 09/19/24 @ 07:36 by Denver Lu MD) Anemia (Unknown) Anxiety (Unknown) Aphasia (11/2014) Blind left eye (2015) Cervical radiculopathy Chronic back pain (Unknown) CKD (chronic kidney disease) (Unknown) Generalized headaches (Unknown) Gouty arthritis (Unknown) Hearing loss Hx of steroid therapy (~2015) Hyperlipemia (Unknown) Hypertension (Unknown) Hypothyroidism (Unknown) Stroke (11/2014) Uncomplicated opioid dependence Physical Therapy Inpatient Evaluation/Re-Eval M1 PT/OT-IP Prior Functional Status Start: 09/19/24 12:00 Freq: NEEDED Status: Active Protocol: Document 09/19/24 10:20 AB (Rec: 09/19/24 12:16 AB [id number]) Medical Review Prior Functional Status Medical History Reviewed Yes Communication Pt is an effective communicator most of the time with extra time. 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 Mobility and Gait pt stated that he has been using a 4WW since his fall; able to ambulate without AD prior to falling Activities of Daily Living and IADL's Pt was IND in ADLs at baseline without AD Social History Household Members spouse Living Arrangements Apartment/Condo Number of Stairs To Enter/Railing? elevator Home Environment Standard Height Toilet,Walk in Shower,Elevator Home Equipment Four Wheel Walker,Hand Held Shower,Grab Bars Near Toilet, Grab Bars In Shower Employment Status Retired M2 PT-IP Current Condition Start: 09/19/24 12:00 Freq: NEEDED Status: Active Protocol: Document 09/19/24 10:20 AB (Rec: 09/19/24 12:16 AB [id number]) Physical Therapy Current Condition Current Condition Evaluation Date 09/19/24 Treatment Diagnosis s/p fall; R pelvic fx; difficulty in walking Onset Date 09/18/24 M3 PT-IP Subjective Start: 09/19/24 12:00 Freq: NEEDED Status: Active Protocol: Document 09/19/24 10:20 AB (Rec: 09/19/24 12:16 AB [id number]) Subjective Physical Therapy Visit Type Type Initial Evaluation Visit Start Time 10:20 Visit Stop Time 10:40 Number of POWER CUTTING MACHINE OPERATOR Visits 0 Physical Therapy Visit Comments Patient Comments agreeable to do PT Therapy Pain Assessment Pain When Pain Assessed At Rest Pain Present Pain Present Pain Reported Location left knee Intensity 7 Scale Used 10/10 with movement Pain Management Techniques Distraction,Modification of Treatment,Re-positioning, Timing of Activity with Medications M4 PT-IP Mobility and Gait Start: 09/19/24 12:00 Freq: NEEDED Status: Active Protocol: Document 09/19/24 10:20 AB (Rec: 09/19/24 12:16 AB [id number]) PT-Transfer Assessment Sit to and From Stand Sit to and from Stand Maximum Assistance,1 Person Assistance,Use of Upper Extremities Equipment Transfer Assistive Device Gait Belt,4 Wheeled Walker Orthotic/Prosthetic Devices or Brace: No Transfer Ability Level of Assist Maximum Assistance,1 Person Assistance,Use of Upper Extremities Comments Mobility Comments pt sitting on the chair and agreeable to do PT. obtained PLOF and home set up. pt has expressive aphasia and needs time to respond to questions. completed sit to stand from the chair max A and max cues. needed increase time to complete with c/o increase R hip pain. able to ambulate using 4WW max A ~ 6 ft with chair follow. pt needed max A for controlled descent to chair. pt refused further mobility due to pain. positioned pt on the chair. call light and table placed within reach. informed pt regarding current mobility level and assistance needed. informed pt that he will need a w/c for now when he goes home due to limited mobility and pain. pt understood. Gait Assessment Gait Gait Assistance Required: Maximum Assistance Distance (Feet) 6 Able to Maintain Weight Bearing Status Yes During Gait Assistive Devices Assistive Device Gait Belt,4 Wheeled Walker Orthotic/Prosthetic Devices or Brace: No Gait Deviations General Gait Pattern Decreased Stride Length, Decreased Feet Clearance,Step- to Gait Factors Limiting Gait Function Factors Limiting Gait Function Decreased Activity Tolerance, Decreased Strength,Difficulty Following Directions,Limited Range of Motion,Pain,Poor Balance,Poor Safety Awareness PT-Balance Assessment Sitting Balance and Reactions Static Sitting Balance Ability Normal Dynamic Sitting Balance Ability Good Standing Balance and Reactions Static Standing Balance Ability Poor Dynamic Standing Balance Ability Poor Device Used 4WW M5 PT-IP Objective Assessments Start: 09/19/24 12:00 Freq: NEEDED Status: Active Protocol: Document 09/19/24 10:20 AB (Rec: 09/19/24 12:16 AB [id number]) Orientation Orientation/Cognition Level of Alertness Alert Orientation Name Language Function Ability Expressive Aphasia Safety Awareness Decreased Safety Awareness Memory Description Short Term Impaired Strength Lower Extremity Strength Assessment Right Impaired Hip 3+/5 Knee 4-/5 Muscle Tone Muscle Tone WNL Yes M6 PT-IP Treatment Start: 09/19/24 12:00 Freq: NEEDED Status: Active Protocol: Document 09/19/24 10:20 AB (Rec: 09/19/24 12:16 AB [id number]) Physical Therapy Treatment Education Education Provided Weight Bearing Status,Safety M7 PT-IP Assessment and Plan Start: 09/19/24 12:00 Freq: NEEDED Status: Active Protocol: Document 09/19/24 10:20 AB (Rec: 09/19/24 12:16 AB [id number]) PT Summary Assessment and Plan Potential Rehabilitation Potential Fair Status of Condition at Evaluation Evolving Summary Impairments Pain,ROM,Strength,Balance, Coordination,Sensation,Tone, Cognition,Bed Mobility, Transfers,Gait,Activity Tolerance Assessment Summary pt is an 88 y/o M s/p fall and sustain a R pelvic fx. pt is WBAT on RLE. pt requiring max A for sit to stand and only able to ambulate ~ 6 ft using 4WW with max A and max cues. pt will require 24/ assist and will need a w/c at this time for home use due to limited mobility. d/c plan depending on progress. will continue to assess. Goals Bed Mobility Goal Standby Assistance Transfer Goal Standby Assistance,Front Wheeled Walker Gait Goal Standby Assistance,Front Wheel Walker Gait Distance 100 Other Goals improve transfers and ambulation using 4WW 200 ft SBA Days to Meet Goals 10 Frequency of Treatment Frequency Of Treatment Once a Day Treatment Plan Physical Therapy Treatment Plan Bed Mobility Training,Transfer Training,Gait Training, Therapeutic Exercise,Balance Retraining,Post Op Education, Discharge Planning,Hot or Cold Pack,Neuromuscular Re-ed, Coordination Retraining,Manual Therapy Weight Bearing Status Weight Bearing Status Weight Bear as Tolerated Allowed Weight Bearing Amount (enter % RLE WBAT or #) (%) Recommendations To Nursing Amount of Assist Needed 1 Person Assist Discharge Recommendations PT Discharge Recommendations Home with 19/04 Assist Available,Home Health,SNF Rehab,Home vs SNF Equipment Needed for Home Before w/c Discharge Transportation Needs at Discharge Private Vehicle,Wheelchair/ Cabulance
[2024-09-19] MEDS: OXYCODONE IR 10 MG TABLET PO ×2 (11:13→18:42)
[2024-09-19] MEDS: ACETAMINOPHEN 325 MG TABLET 650 MG PO ×2 (11:19→18:42)
--- NOTE | 2024-09-19 15:09 | CM.DANOTE ---
Addendum entered by HODA Michaels 09/19/24 15:35: Add to previous note, pt address in chart not accurate. Pt address is [address] ([facility]) [address] [place]. (elevator available). SL Original Note: DCP Assessment Note pt is an 88yo M here following non operable pelvic fracture from a GLF at home. PCP Juan Vo Payer Medicare and Medicaid CRYPTANALYST reviewed EMR. PN from provider says ANISHA 1 to 2 days. PT/OT rec SNF vs home with HH. CRYPTANALYST entered room and introduced self and role. Pt accompanied by spouse Anita ([phone]). Pt and spouse live together in [facility] in [place]. Spouse assists with IADLs/drives/helps with home chores/food prep. Walker at home. spouse working on getting a w/c. Hx of HH but do not remember agency. reviewed DCP options- pt refusing SNF. preference HH, no preference for agency. cannot get in and out of their vehicle, preference BLS transport. pt and spouse report verbal understanding there may be a bill associated with BLS transport. if pt not able to get out of car and into car tomorrow, preference BLS. Main concern about home is pt hving to get up to pee. This CRYPTANALYST told pt and spouse we could send him home with a hand urinal. CRYPTANALYST gave copy of [facility] brochure. appreciative of help. CRYPTANALYST spoke with Amparo from [facility], can accept pt. Nursing SOC Saturday 09/22. CRYPTANALYST completed f2f and order. P: anticipate dc home Wed vs with [facility] to follow. Transport via BLS vs POV. CM team will continue to follow closely HODA Michaels Discharge Planning/Care Management CM Discharge Assessment Start: 09/19/24 15:07 Freq: Status: Active Protocol: Document 09/19/24 15:07 (Rec: 09/19/24 15:09 [id number]) Discharge Planning Assessment Assigned Microfilm Equipment Inspector HODA Pagan DPOA/Assigned Designee Name Anita, spouse Contact Information [phone] Advance Directives? No History Provided By Patient,Significant Other Prior Living Arrangements Apartment/Condo Household Members spouse Type of transporation used prior to Relies on Others admit Is patient alert and oriented? Yes Needs Assistance With Meal Prep,Home Chores / Shopping Comment spouse assists with ADLs and IADLs DME Already Rented / Owned FWW / Walker Comment spouse working on getting a w/ c and we will send pt home with a handheld urinal Patient/Family Preference Home with Home Health Discharge Plan Home with Home Health Transportation Arrangement sposue if can get in POV vs BLS Referrals Initiated Home Health SNF/HH Preference [facility] can accept Whiteboard Updated in Patient Room with Yes name and ext. # of Microfilm Equipment Inspector Review Status In Process Please Provide Date Initial DC 09/19/24 Assessment Was Performed Next Review Type Continued Stay Review
[2024-09-19 20:00] VITALS: BP 138/54; PULSE 63; RESP 16; TEMP 36.3; O2SAT 97
[2024-09-19] MEDS: SENNOSIDES 8.6 MG TABLET 17.2 MG PO (21:38)
[2024-09-19] MEDS: GABAPENTIN 300 MG CAPSULE PO (21:38)
[2024-09-19] MEDS: ATORVASTATIN 20 MG TABLET 40 MG PO (21:39)
[2024-09-20] MEDS: LEVOTHYROXINE 100 MCG TABLET PO (06:02)
[2024-09-20 07:00] VITALS: BP 135/53; PULSE 60; RESP 16; TEMP 36.1; O2SAT 96
[2024-09-20] MEDS: GABAPENTIN 300 MG CAPSULE PO ×2 (08:08→20:30)
[2024-09-20] MEDS: CLOPIDOGREL 75 MG TABLET PO (08:08)
[2024-09-20] MEDS: OXYCODONE IR 10 MG TABLET PO ×4 (08:08→20:30)
[2024-09-20] MEDS: ENOXAPARIN 40 MG/0.4 ML SYRINGE SUBCUT (08:09)
[2024-09-20] MEDS: allopurinoL 100 MG TABLET 300 MG PO (08:09)
--- NOTE | 2024-09-20 10:45 | PT-IP ANOTE ---
Pt reports R hip pain and declines PT until after pain medication. Per conversation with Nursing will attempt PT about 11:15am
--- NOTE | 2024-09-20 12:06 | PM.PN.1 ---
Subjective Subjective Date Patient Seen: 09/20/24 Time Patient Seen: 09:00 Interval history: Summary: 88 y/o with PMH of Lt MCA CVA with chronic Rt hemiparesis, expressive aphasia and impaired mobility, sustained accidental GLF at home 3 days ago, landing on right hip. Since then with progressive pain of upper leg and hip with great difficulties ambulating. Initial Xrays non-revealing, CT shows Rt ischial and Rt inferior ramus fractures. Orthopedist recommending conservative management and WBAT on RLE. Placed in observation for pain control, PT and OT evaluation and supportive care. S: He is seen with his at bedside, stating he still has significant pain but responsive to oral oxycodone and intermittent IV Dilaudid as needed. He denies any abdominal pain, chest pain or shortness a breath. Exam Vital Signs (past 8 hours): - 09/20/24 07:00 Temperature 96.9 F L Pulse Rate 60 Respiratory Rate 16 Blood Pressure 135/53 L Pulse Oximetry 96 Oxygen Flow Rate 0 Oxygen Delivery Method Room Air Oxygen Flow Rate 0 Narrative Exam Narrative: NAD, alert and oriented. Fluent speech. Lungs are clear, normal rate and effort. Heart is regular, no murmur gallop or rub. Abdomen is soft, non distended. Extremities are with chronic edema and venous stasis changes. Objective Labs 09/19/24 06:00 09/19/24 06:00 [facility] Medical History Anemia (Unknown) Anxiety (Unknown) Aphasia (11/2014) Blind left eye (2015) Cervical radiculopathy Chronic back pain (Unknown) CKD (chronic kidney disease) (Unknown) Generalized headaches (Unknown) Gouty arthritis (Unknown) Hearing loss Hx of steroid therapy (~2015) Hyperlipemia (Unknown) Hypertension (Unknown) Hypothyroidism (Unknown) Stroke (11/2014) Uncomplicated opioid dependence Surgical History Hx of total hip arthroplasty (Unknown) Family History Father No problems noted. Mother No problems noted. Social History household members: spouse Smoking Status: Former smoker alcohol intake: never substance use type: does not use Assessment & Plan Assessment & Plan narrative: 1. Pelvic Fracture - Rt ischium and inferior pubic ramus, present on admission and active. - accidental GLF with chronically impaired mobility - pain managemnt - WBAT - PT, OT assessment. PT recommends a wheelchair. 2. Hx of Lt MCA CVA, stable - Rt hemiparesis and expressive aphasia since - Plavix, statin 3. Hypothyroidism, stable - levothyroxine 100 mcg daily - TSH in range 4. Gout, stable - Allopurinol 5. Anxiety, stable - Xanax Plan: -pain control -physical therapy -he declines detention facility rehab and lives with his in [place], who expresses uncertainty about her ability to manage his needs at home. ANISHA: 1-2 days. DVT prophylaxis - Lovenox Time-Based Coding :: [TOTAL MINUTES] spent with patient and on the chart (including review of chart, obtaining history, exam, reviewing outside data, placing orders, documenting exam and treatment plan, and counseling patient) on [DATE].
--- NOTE | 2024-09-20 12:11 | PT.IPTN ---
Current Diagnoses Hypothyroidism, unspecified (09/18/24) Mixed hyperlipidemia (09/18/24) Opioid dependence, uncomplicated (09/18/24) Anxiety disorder, unspecified (09/18/24) Other chronic pain (09/18/24) Blindness, one eye, unspecified eye (09/18/24) Aphasia following cerebral infarction (09/18/24) Hemiplegia and hemiparesis following cerebral infarction affecting right dominant side (09/18/24) Low back pain (09/18/24) Chronic kidney disease, stage 3a (09/18/24) Multiple fractures of pelvis with stable disruption of pelvic ring, initial encounter for closed fracture (09/18/24) Physical Therapy Treatment Note M2 PT-IP Current Condition Start: 09/19/24 12:00 Freq: NEEDED Status: Active Protocol: Document 09/19/24 10:20 AB (Rec: 09/19/24 12:16 AB [id number]) Physical Therapy Current Condition Current Condition Evaluation Date 09/19/24 Treatment Diagnosis s/p fall; R pelvic fx; difficulty in walking Onset Date 09/18/24 M3 PT-IP Subjective Start: 09/19/24 12:00 Freq: NEEDED Status: Active Protocol: Document 09/20/24 11:35 NBM (Rec: 09/20/24 17:26 [facility] [id number]) Subjective Physical Therapy Visit Type Type Treatment Note Visit Start Time 11:35 Visit Stop Time 12:11 Number of WIRE ANNEALER Visits 1 Physical Therapy Visit Comments Patient Comments agreeable to do PT Therapy Pain Assessment Pain When Pain Assessed At Rest Pain Present Pain Present Pain Reported M4 PT-IP Mobility and Gait Start: 09/19/24 12:00 Freq: NEEDED Status: Active Protocol: Document 09/20/24 11:35 NBM (Rec: 09/20/24 17:26 [facility] [id number]) PT-Bed Mobility Assessment Rolling Type of Rolling Roll to Right Level of Assist Minimal Assistance Supine to Sit Supine to Sit Maximum Assistance,1 Person Assistance Scooting Scooting to Edge of Bed Moderate Assistance Scooting Up and Down in Bed Standby Assistance PT-Transfer Assessment Sit to and From Stand Sit to and from Stand Maximum Assistance,1 Person Assistance,Use of Upper Extremities Equipment Transfer Assistive Device Gait Belt,Front Wheeled Walker Orthotic/Prosthetic Devices or Brace: No Transfer Ability Level of Assist Maximum Assistance,1 Person Assistance,Use of Upper Extremities Comments Mobility Comments Pt has expressive aphasia and needs time to respond to questions. Pt supine in bed with HOB elevated, pillow supports under hips, and agreeable to do PT. BP 144/69 96% SO2. No c/o dizziness. B Ankle pumps, quad sets, SAQs, and heel slides performed w/ positive feedback response. Pt requires max assist for supine to sit and Adonay for scooting to EOB. Seated LAQs attempted but dc'd d/t pt c/o pain. Completed sit to stand from the bed max A and max cues for gluteal activation and upright posture. BP cuff in standing loosens, stand>sit maxA to allow for donning larger BP cuff: 122/80 98% SO2 seated. Edu to pt for use of FWW vs 4WW for increased stability. Sit>stand maxA. Edu for proximation and sequencing. Standing heel raises x5. standing marching. Able to ambulate 15 ft around bed to chair using FWW max A w / cues for proximation, sequencing, step length and upright posture; demos improved self-awareness for all except requires tactile cueing for upright posture throughout ambulation. Pt needed max A for controlled descent to chair. He tolerates gluteal sets x5. Positioned pt on the chair w/ alarm. Call light and table placed within reach. Gait Assessment Gait Gait Assistance Required: Maximum Assistance Distance (Feet) 15 Able to Maintain Weight Bearing Status Yes During Gait Assistive Devices Assistive Device Gait Belt,Front Wheeled Walker Orthotic/Prosthetic Devices or Brace: No Gait Deviations General Gait Pattern Decreased Stride Length, Decreased Feet Clearance,Step- to Gait Factors Limiting Gait Function Factors Limiting Gait Function Decreased Activity Tolerance, Decreased Strength,Difficulty Following Directions,Limited Range of Motion,Pain,Poor Balance,Poor Safety Awareness Comments Gait Comments See Mobility comments. PT-Balance Assessment Sitting Balance and Reactions Static Sitting Balance Ability Normal Dynamic Sitting Balance Ability Good Standing Balance and Reactions Static Standing Balance Ability Poor Dynamic Standing Balance Ability Poor Device Used FWW M5 PT-IP Objective Assessments Start: 09/19/24 12:00 Freq: NEEDED Status: Active Protocol: Document 09/19/24 10:20 AB (Rec: 09/19/24 12:16 AB [id number]) Orientation Orientation/Cognition Level of Alertness Alert Orientation Name Language Function Ability Expressive Aphasia Safety Awareness Decreased Safety Awareness Memory Description Short Term Impaired Strength Lower Extremity Strength Assessment Right Impaired Hip 3+/5 Knee 4-/5 Muscle Tone Muscle Tone WNL Yes M6 PT-IP Treatment Start: 09/19/24 12:00 Freq: NEEDED Status: Active Protocol: Document 09/20/24 11:35 NBM (Rec: 09/20/24 17:26 [facility] [id number]) Physical Therapy Treatment Exercises Exercises Ankle Pumps,Gluteal Sets,Quad Sets,Heel Slides,Short Arc Quads,Seated Knee Flexion/ Extension Education Education Provided Safety M7 PT-IP Assessment and Plan Start: 09/19/24 12:00 Freq: NEEDED Status: Active Protocol: Document 09/20/24 11:35 NBM (Rec: 09/20/24 17:26 [facility] [id number]) PT Summary Assessment and Plan Potential Rehabilitation Potential Fair Status of Condition at Evaluation Evolving Summary Impairments Pain,ROM,Strength,Balance, Coordination,Sensation,Tone, Cognition,Bed Mobility, Transfers,Gait,Activity Tolerance Assessment Summary Pt continues to require maxA for all mobility except Adonay for scooting to edge of seat. He ambulates only 15 ft today using FWW with max A and max cues, although he does demo improving activity tolerance today w/ ten minutes of gait training and increased ambulation distance from 6 ft yesterday to 15 ft today. Pt will require / assist and will need a w/c at this time for home use due to limited mobility. D/C plan depending on progress. will continue to assess. Goals Bed Mobility Goal Standby Assistance Transfer Goal Standby Assistance,Front Wheeled Walker Gait Goal Standby Assistance,Front Wheel Walker Gait Distance 100 Other Goals improve transfers and ambulation using 4WW 200 ft SBA Days to Meet Goals 10 Frequency of Treatment Frequency Of Treatment Once a Day Treatment Plan Physical Therapy Treatment Plan Bed Mobility Training,Transfer Training,Gait Training, Therapeutic Exercise,Balance Retraining,Post Op Education, Discharge Planning,Hot or Cold Pack,Neuromuscular Re-ed, Coordination Retraining,Manual Therapy Weight Bearing Status Weight Bearing Status Weight Bear as Tolerated Allowed Weight Bearing Amount (enter % RLE WBAT or #) (%) Recommendations To Nursing Amount of Assist Needed 1 Person Assist Discharge Recommendations PT Discharge Recommendations Home with 24/7 Assist Available,Home Health,SNF Rehab,Home vs SNF Equipment Needed for Home Before w/c Discharge Transportation Needs at Discharge Private Vehicle,Wheelchair/ Cabulance
[2024-09-20] MEDS: HYDROMORPHONE 0.5 MG INJ IV (12:18)
[2024-09-20 19:35] VITALS: BP 140/48; PULSE 62; RESP 20; TEMP 36.5; O2SAT 97
[2024-09-20] MEDS: SENNOSIDES 8.6 MG TABLET 17.2 MG PO (20:30)
[2024-09-20] MEDS: ATORVASTATIN 20 MG TABLET 40 MG PO (20:30)
[2024-09-20] MEDS: ALPRAZolam 0.25 MG TABLET 0.5 MG PO (20:30)
[2024-09-21] MEDS: LEVOTHYROXINE 100 MCG TABLET PO (05:46)
[2024-09-21 07:00] VITALS: BP 137/50; PULSE 61; RESP 18; TEMP 36.4; O2SAT 95
[2024-09-21 08:00] VITALS: BP 126/51; PULSE 61; RESP 16; TEMP 36.6; O2SAT 97
[2024-09-21] MEDS: ENOXAPARIN 40 MG/0.4 ML SYRINGE SUBCUT (08:21)
[2024-09-21] MEDS: GABAPENTIN 300 MG CAPSULE PO (08:21)
[2024-09-21] MEDS: allopurinoL 100 MG TABLET 300 MG PO (08:21)
[2024-09-21] MEDS: OXYCODONE IR 10 MG TABLET PO ×3 (08:21→16:32)
[2024-09-21] MEDS: CLOPIDOGREL 75 MG TABLET PO (08:21)
--- NOTE | 2024-09-21 09:55 | PT.IPTN ---
Current Diagnoses Hypothyroidism, unspecified (09/18/24) Mixed hyperlipidemia (09/18/24) Opioid dependence, uncomplicated (09/18/24) Anxiety disorder, unspecified (09/18/24) Other chronic pain (09/18/24) Blindness, one eye, unspecified eye (09/18/24) Aphasia following cerebral infarction (09/18/24) Hemiplegia and hemiparesis following cerebral infarction affecting right dominant side (09/18/24) Low back pain (09/18/24) Chronic kidney disease, stage 3a (09/18/24) Multiple fractures of pelvis with stable disruption of pelvic ring, initial encounter for closed fracture (09/18/24) Physical Therapy Treatment Note M2 PT-IP Current Condition Start: 09/19/24 12:00 Freq: NEEDED Status: Active Protocol: Document 09/19/24 10:20 AB (Rec: 09/19/24 12:16 AB [id number]) Physical Therapy Current Condition Current Condition Evaluation Date 09/19/24 Treatment Diagnosis s/p fall; R pelvic fx; difficulty in walking Onset Date 09/18/24 M3 PT-IP Subjective Start: 09/19/24 12:00 Freq: NEEDED Status: Active Protocol: Document 09/21/24 10:15 TS (Rec: 09/21/24 10:23 TS [id number]) Subjective Physical Therapy Visit Type Type Treatment Note Visit Start Time 09:55 Visit Stop Time 10:15 Number of EARLY CHILDHOOD AIDE CLASSROOM Visits 2 Physical Therapy Visit Comments Patient Comments Pt found resting in the chair, he is agreeable to PT. Therapy Pain Assessment Pain When Pain Assessed At Rest Pain Present Pain Present Pain Reported M4 PT-IP Mobility and Gait Start: 09/19/24 12:00 Freq: NEEDED Status: Active Protocol: Document 09/21/24 10:15 TS (Rec: 09/21/24 10:23 TS [id number]) PT-Transfer Assessment Sit to and From Stand Sit to and from Stand Minimal Assistance,1 Person Assistance,Use of Upper Extremities Equipment Transfer Assistive Device Gait Belt,Front Wheeled Walker Orthotic/Prosthetic Devices or Brace: No Comments Mobility Comments STS with FWW Lyndsay, pt demonstrates good carryover of sequencing. He ambulates CGA with FWW ~30' in the room with a slow step to gait. Pt ambulates back to the chair, all needs met. Gait Assessment Gait Gait Assistance Required: Contact Guard Assist Distance (Feet) 30 Able to Maintain Weight Bearing Status Yes During Gait Assistive Devices Assistive Device Gait Belt,Front Wheeled Walker Orthotic/Prosthetic Devices or Brace: No Gait Deviations General Gait Pattern Decreased Stride Length, Decreased Feet Clearance,Step- to Gait Factors Limiting Gait Function Factors Limiting Gait Function Decreased Activity Tolerance, Decreased Strength,Difficulty Following Directions,Limited Range of Motion,Pain,Poor Balance,Poor Safety Awareness Comments Gait Comments See Mobility comments. PT-Balance Assessment Sitting Balance and Reactions Static Sitting Balance Ability Normal Dynamic Sitting Balance Ability Good Standing Balance and Reactions Static Standing Balance Ability Fair Dynamic Standing Balance Ability Fair Device Used FWW M5 PT-IP Objective Assessments Start: 09/19/24 12:00 Freq: NEEDED Status: Active Protocol: Document 09/19/24 10:20 AB (Rec: 09/19/24 12:16 AB [id number]) Orientation Orientation/Cognition Level of Alertness Alert Orientation Name Language Function Ability Expressive Aphasia Safety Awareness Decreased Safety Awareness Memory Description Short Term Impaired Strength Lower Extremity Strength Assessment Right Impaired Hip 3+/5 Knee 4-/5 Muscle Tone Muscle Tone WNL Yes M6 PT-IP Treatment Start: 09/19/24 12:00 Freq: NEEDED Status: Active Protocol: Document 09/21/24 10:15 TS (Rec: 09/21/24 10:23 TS [id number]) Physical Therapy Treatment Education Education Provided Safety M7 PT-IP Assessment and Plan Start: 09/19/24 12:00 Freq: NEEDED Status: Active Protocol: Document 09/21/24 10:15 TS (Rec: 09/21/24 10:23 TS [id number]) PT Summary Assessment and Plan Potential Rehabilitation Potential Fair Summary Impairments Pain,ROM,Strength,Balance, Coordination,Sensation,Tone, Cognition,Bed Mobility, Transfers,Gait,Activity Tolerance Progress Towards Goals Progressing Toward Goals Assessment Summary Wilber is making progress with his mobility. He performed STS Lyndsay with use of FWW. He progressed his gait to ~30' CGA with use of FWW. Pt has a slow step to gait, no buckling or LOB. PT is recommending home with / assist and HHPT . Goals Bed Mobility Goal Standby Assistance Transfer Goal Standby Assistance,Front Wheeled Walker Gait Goal Standby Assistance,Front Wheel Walker Gait Distance 100 Other Goals improve transfers and ambulation using 4WW 200 ft SBA Days to Meet Goals 10 Frequency of Treatment Frequency Of Treatment Once a Day Treatment Plan Physical Therapy Treatment Plan Bed Mobility Training,Transfer Training,Gait Training, Therapeutic Exercise,Balance Retraining,Post Op Education, Discharge Planning,Hot or Cold Pack,Neuromuscular Re-ed, Coordination Retraining,Manual Therapy Weight Bearing Status Weight Bearing Status Weight Bear as Tolerated Allowed Weight Bearing Amount (enter % RLE WBAT or #) (%) Recommendations To Nursing Amount of Assist Needed 1 Person Assist Discharge Recommendations PT Discharge Recommendations Home with 19/04 Assist Available,Home Health Equipment Needed for Home Before w/c Discharge Transportation Needs at Discharge Private Vehicle
--- NOTE | 2024-09-21 11:14 | CM.DPNOTE ---
DCP Cont Patient expected to be discharged today, home w/spouse. Patient continues to decline SNF. Attempted to review discharge plan with patient and he was using the urinal; will plan to return later. Updated [facility] that patient is likely going to return home today. Nursing SOC 09/22. F2F will be scanned in by PILAR Mcghee. Placed call to patient's spouse, had to . Plan: Discharge home w/spouse expected today, transport TBD, [facility] to follow for RN/PT/OT. BRUNO
--- NOTE | 2024-09-21 11:55 | PM.DS.1 ---
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 Since then with progressive pain of upper leg and hip with great difficulties ambulating. Initial Xrays non-revealing, CT shows Rt ischial and Rt inferior ramus fractures. Orthopedist recommending conservative management and WBAT on RLE. Placed in observation for pain control, PT and OT evaluation and supportive care. Discharge Providers Provider Date of admission: 09/18/24 22:46 Discharge Date: 09/21/24 Primary care physician: Juan Vo MD Consults: 09/18/24 23:32 Consult to Occupational Therapy Evaluate & Treat Comment: Physician Instructions: Evaluate and treat Consult to Physical Therapy Evaluate & Treat Comment: Physician Instructions: Evaluate and Treat 09/19/24 15:29 Consult to Home Health Routine Comment: Reason For Exam: RN/PT/OT Discharge provider: Denver Lu MD Summary Hospital Course Discharge Diagnosis: 1. Pelvic Fracture - Rt ischium and inferior pubic ramus, present on admission and active. - accidental GLF with chronically impaired mobility - pain managemnt 2. Hx of Lt MCA CVA, stable - Rt hemiparesis and expressive aphasia since - Plavix, statin 3. Hypothyroidism, stable - levothyroxine 100 mcg daily - TSH in range 4. Gout, stable - Allopurinol 5. Anxiety, stable - Xanax Hospital Course: Patient was admitted with a right inferior pubic ramus fracture. The patient had slow but reasonable pain control and was able to convert to oral medications. He was seen by physical therapy and occupational therapy with recommendations for wheelchair use at this time for gait stability. Due to severe pubis pain as a result of a fall with a right inferior pubic ramus fracture, the patient has significant mobility limitations inside the home as well as outside of the home. As a result of mobility limitations, patient is therefore unable to accomplish mobility related aids to daily living activities, such as, toileting, feeding, bathing and grooming without the assistance of a wheelchair due to pain and gait instability. Due to the effects of a previous stroke with right hemiparesis, patient is completely incapable of using a cane or walker inside the home. Patient will be reliant upon a wheelchair to accomplish all mobility related aids to daily living in the home such as toileting, feeding bathing and grooming. Patient has not expressed an unwillingness to use the wheelchair and patient has sufficient upper extremity function to safely propel a wheelchair on a daily basis in the home. The use of a wheelchair will significantly improve patient's ability to successfully participate in all MRADL's (grooming, bathing, feeding and toileting) and as a result, patient's functional mobility deficits will be resolved. The beneficiary's home provides adequate access between rooms, maneuvering space, and surfaces for use of the manual wheelchair that is provided. Status at Discharge Cognitive/behavioral status at discharge: oriented Functional status at discharge: wheelchair bound Overall status at discharge: patient is not back to baseline Time Spent with Patient Time spent: Greater than 30 minutes Exam Vital Signs (past 8 hours): - 09/21/24 07:00 09/21/24 08:00 Temperature 97.6 F 97.8 F Pulse Rate 61 61 Respiratory Rate 18 16 Blood Pressure 137/50 L 126/51 L Pulse Oximetry 95 97 Oxygen Flow Rate 0 Oxygen Delivery Method Room Air Oxygen Flow Rate 0 Narrative Exam Narrative: NAD, alert and oriented. Fluent speech. Mild expressive aphasia and right-sided weakness. Lungs are clear, normal rate and effort. Heart is regular, no murmur gallop or rub. Abdomen is soft, non distended. Extremities are free of edema. Objective Imaging Multiple studies:: Radiologist's impression: Pelvis CT: Cortical step-off along the inner margin of the right ischium, likely a pathologic fracture due to the presence of particle disease. Mildly displaced fracture of the right inferior pubic ramus. Knee x-ray: No acute fractures. Hip x-ray: Prior bilateral total hip arthroplasty. Hip alignment is not significantly changed from 2022 study. No gross acute periprosthetic fracture. No definite hardware loosening or failure. Labs 09/19/24 06:00 09/19/24 06:00 [facility] Medical History Cervical radiculopathy Hearing loss Uncomplicated opioid dependence Anxiety (Unknown) Hx of steroid therapy (~2015) Gouty arthritis (Unknown) Hypothyroidism (Unknown) Hyperlipemia (Unknown) CKD (chronic kidney disease) (Unknown) Hypertension (Unknown) Anemia (Unknown) Aphasia (11/2014) Blind left eye (2016) Generalized headaches (Unknown) Stroke (11/2014) Chronic back pain (Unknown) Surgical History Hx of total hip arthroplasty (Unknown) Family History Father No problems noted. Mother No problems noted. Social History household members: spouse Smoking Status: Former smoker alcohol intake: never substance use type: does not use Discharge Assessment & Plan Assessment and Plan Assessment: 1. Pelvic Fracture - Rt ischium and inferior pubic ramus, present on admission and active. 2. Hx of Lt MCA CVA, stable Plan of Treatment: Discharge home with analgesia and a wheelchair for current mobility as outlined above. Discharge Plan Discharge Plan Patient Disposition: Home Provider Discharge Comment: Stable for discharge home with pain medications and a wheelchair. Discharge orders & Medications Prescriptions: Continued levothyroxine 100 mcg tablet 100 mcg PO QAM Qty: 90 3RF allopurinol 300 mg tablet 300 mg PO QDAY Qty: 30 5RF clopidogrel [Plavix] 75 mg tablet 75 mg PO QDAY Qty: 90 1RF atorvastatin 40 mg tablet 40 mg PO HS Qty: 90 1RF gabapentin [Neurontin] 300 mg capsule 600 mg PO 5XD PRN (Reason: pain) Qty: 90 0RF alprazolam 0.5 MG tablet 0.5 mg OR HSP PRN (Reason: sleep) oxycodone 10 mg tablet 10 mg PO QIDP PRN (Reason: pain) Qty: 120 0RF Rx Instructions: EXEMPT Follow up/Referrals: Juan Vo MD [Primary Care Provider] - Discharge Health Status Multidrug resistant organism: No MDRO Diet/Activity/Treatments Diet: Regular Visit Report/Discharge Packet Instructions: DI for Pelvic Fracture Stand Alone Forms: Patient Portal/API Discharge Data Primary Care Provider: Juan Vo
--- NOTE | 2024-09-21 14:51 | CM.DPNOTE ---
DC Note Patient has been discharged; Therapies recommend manual wheelchair for home use due to patient's limited mobility. Patient and spouse do not have one and cannot afford to buy or rent at this time. patient eager to return home. Reviewed plan with patient and his at bedside. Both agreeable to home w/[facility], attempt to secure wheelchair...patient has a walker with seat for home ambulation, transport via S. Completed the multi-step online process on [employer] website. With help from Dr Lu, submitted the following online: -Signed general order form for manual wheelchair -DME [employer] encounter form -face sheet and DC Summary with completed smart phrases Placed call to [employer] customer service P [phone] who suggested this [employer] TECHNICIAN also fax all ppk to the [facility] location F [phone]. [employer] rep had no input re how long this order would take to process and/or delivered to patient. Meanwhile, working on transportation home; patient cannot transport via private vehicle. Patient and spouse okay with BLS transport if [employer] transport is not available. Placed call to [employer] transport and patient does not have this benefit, has [employer] Q[employer]- assist with Medicare coverage of Part A and Part B premiums and cost sharing for low-income Medicare beneficiaries. 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 Plan: Discharge home w/spouse, BLS, [facility] ([facility] updated). Wheelchair via [employer] vs [employer] lending closet. BRUNO
--- NOTE | 2024-09-21 15:51 | OT.IPNOTE ---
Attempted to see pt for OT services. Pt states he has been up twice today and is ready to go home. No OT services rendered on this date.
--- NOTE | 2024-09-21 16:38 | PC.NURSE ---
Day shift: Left unit via BLS and headed home at 1640. Paperwork signed and all questions answered. Pt has all personal belongings. Encouraged to f/u with PCP as soon as possible. Pt also needs a wheelchair at home and Spouse will get one tomorrow is the plan. Medicated for pain per MAR just prior to d/c. CMS remains intact.
== END 2024-09-21 16:40 | disposition home health service (06) | DRG 536 ==
LOC: ED 22:36 → AC 22:50
PROVIDERS: Admitting Provider Internal Medicine; Emergency Provider Emergency Medicine; PCP Family Medicine; Visit Provider Internal Medicine
DX: S32.810A Multiple fractures of pelvis with stable disruption of pelvic ring, initial encounter for closed fracture (principal); I69.351 Hemiplegia and hemiparesis following cerebral infarction affecting right dominant side; F11.20 Opioid dependence, uncomplicated; I69.320 Aphasia following cerebral infarction; F41.9 Anxiety disorder, unspecified; E03.9 Hypothyroidism, unspecified; E78.2 Mixed hyperlipidemia; N18.31 Chronic kidney disease, stage 3a; H54.62 Unqualified visual loss, left eye, normal vision right eye; I12.9 Hypertensive chronic kidney disease with stage 1 through stage 4 chronic kidney disease, or unspecified chronic kidney disease; G89.29 Other chronic pain; M10.9 Gout, unspecified; E78.5 Hyperlipidemia, unspecified; W18.30XA Fall on same level, unspecified, initial encounter; Z79.02 Long term (current) use of antithrombotics/antiplatelets; Z74.09 Other reduced mobility; Z87.891 Personal history of nicotine dependence
CPT/HCPCS: 36415; 72192; 73502; 73562; 80048; 80053; 84443; 85025; 96374; 97110; 97116; 97162; 97166; 97530; 97535; 99283; 99285; J1171; J1650